=== PATIENT | female | born 1945 | race Caucasian/White ===

== ENCOUNTER 2022-05-07 07:16 | Outpatient (CLI) | payer MEDICARE, SELFPAY ==
--- NOTE | ~2022-05-07 | CT_ITS ---
EXAMINATION: CT abdomen pelvis w con DATE: 05/07/2022 08:04 INDICATION: Diarrhea. Abdominal pain. TECHNIQUE: Computed tomography (CT) of the abdomen and pelvis was performed with 100 cc Omnipaque 350 intravenous contrast. The dose-length product was 220.84 mGy-cm. Automated exposure control and iter ative reconstruction technique were employed. COMPARISON: No prior studies for comparison. FINDINGS: There is thickening of the transverse and proximal descending colon, consistent with coliti s, most likely infectious or inflammatory. Heart size normal. Small hiatal hernia. No significant pleural or pericardial abnormality. Moderate a therosclerosis of the aorta without aneurysm. Colonic diverticulosis without diverticulitis. No free air or free fluid. There is thickening of the bladder wall. There is hepatomegaly. No focal hepatic masses. The spleen, pancreas, adrenal glands and kidneys are unremarkable. Gallbladder is present. No free air or free fluid. No lymphadenopathy. There is osteoar thritis of the hips. Mild lumbar spondylosis with dextroscoliosis. IMPRESSION: 1. Abnormal thickening of the colon, consistent with colitis, most likely infectious or inflammatory. 2: Mild thickening of the bladder wall, suspicious for cystitis. Correlate clinically with urinalysis . 3: Hepatomegaly. Reviewed, dictated and finalized at location A. IMPRESSION: 1. Abnormal thickening of the colon, consistent with colitis, most likely infec tious or inflammatory. 2: Mild thickening of the bladder wall, suspicious for cystitis. Correlate clin ically with urinalysis. 3: Hepatomegaly.
[2022-05-07 07:42] LABS: Estimated Glomerular Filt Rate > 60
== END 2022-05-07 07:17 | disposition home or self-care (01) ==
LOC: CHSIMG 07:20
PROVIDERS: PCP Internal Medicine; Visit Provider Internal Medicine
DX: R19.7 Diarrhea, unspecified (principal); R10.9 Unspecified abdominal pain
CPT/HCPCS: 74177; Q9967

== ENCOUNTER 2022-05-08 07:02 | Outpatient (CLI) | payer MEDICARE, SELFPAY ==
--- NOTE | ~2022-05-08 | US_ITS ---
EXAMINATION: US carotid duplex BI DATE: 05/08/2022 08:57 INDICATION: Carotid bruit. TECHNIQUE: Grayscale, color Doppler, and pulsed Doppler images of the cervical carotid arteries were obtained. The degree of vessel stenosis is placed in one of the following categories: normal, <50%, 5 0-69%, >=70% but less than near-occlusion, near-occlusion, or total occlusion. Note that percent sten osis relative to normal distal artery lumen diameter is indirectly measured from velocity measurement s as described by Srikanth, et al. Radiology 2003; 229:340-346. Notes: Normal: Peak systolic velocity <125 centimeters/sec and no plaque <50%. Peak systolic velocity <125 ( EDV <40; ICA/CCA PSV ratio <2.0; used these factors only a tandem lesions or low cardiac output or co ntralateral disease) 50-69 %: PSV 125-230 (EDV 40-100; ratio 2-4) >= 70% but less than near occlusion: PSV greater than 230 (EDV > 100; ratio> 4.0) Near Occlusion: PSV that is variable; markedly narrowed lumen Occlusion: Absent flow on color/spectral Doppler and no lumen on greene scale. COMPARISON: None. FINDINGS: RIGHT: The right common carotid artery (CCA) peak systolic velocity (PSV) is 65 cm/s. The right internal car otid artery (ICA) PSV is 73 cm/s. The right ICA end-diastolic velocity (EDV) is 27 cm/s. The right IC A/CCA PSV ratio is 1.1. The external carotid artery (ECA) PSV is 67 cm/s. There is antegrade flow in the right vertebral artery. LEFT: The left CCA PSV is 68 cm/s. The left ICA PSV is 68 cm/s. The left ICA EDV is 24 cm/s. The left ICA/C CA PSV ratio is 1.0. The ECA PSV is 69 cm/s. There is antegrade flow in the left vertebral artery. IMPRESSION: 1. Less than 50% stenosis in the right internal carotid artery by sonographic criteria. 2. Less than 50% stenosis in the left internal carotid artery by sonographic criteria. Reviewed, dictated and finalized at location A. IMPRESSION: 1. Less than 50% stenosis in the right internal carotid artery by sonographic padma xie. 2. Less than 50% stenosis in the left internal carotid artery by sonographic elise astudillo.
--- NOTE | ~2022-05-08 | CT_ITS ---
EXAMINATION: CT lung screening DATE: 05/08/2022 07:34 INDICATION: History of nicotine dependence. Lung cancer screening. TECHNIQUE: Computed tomography (CT) of the chest was performed without intravenous contrast. The dose -length product was 63.99 mGy-cm. Automated exposure control and iterative reconstruction technique w ere employed. COMPARISON: None FINDINGS: Mild mediastinal lymphadenopathy, likely reactive. Heart size normal. There is atherosclero sis of the aorta and coronary arteries. Small hiatal hernia. No significant pleural or pericardial ef fusion. There is an irregular shaped nodule in the right upper lobe measuring 7 mm, image 18. Moderat e-severe emphysema. There is a pleural-based mass with irregular margins at the right apex. This may simply represent focal pleural thickening, although neoplasm is not excluded. There is left apical pl eural thickening/scarring. No peripheral airspace consolidation. There are a few small calcified gran ulomas of the lungs.. No endobronchial lesions.. Mild thoracic spondylosis. Anterior fusion changes p resent in the lower cervical spine. There is dextroscoliosis. IMPRESSION: 1. Lung Rads category 4B, very suspicious: Recommend pet/CT scan to assess for abnormal uptake in rig ht upper lobe nodules. Due to location these would be difficult to evaluate with percutaneous biopsy. Reviewed, dictated and finalized at location A. IMPRESSION: 1. Lung Rads category 4B, very suspicious: Recommend pet/CT scan to assess for abnormal uptake in right upper lobe nodules. Due to location these would be dif ficult to evaluate with percutaneous biopsy.
--- NOTE | ~2022-05-08 | US_ITS ---
US arterial ankle brachial ind INDICATION: Peripheral arterial disease TECHNIQUE: Segmental pressures and plethysmographic and Doppler waveforms of the brachial and lower e xtremity arteries were obtained. COMPARISON: None. FINDINGS: Right and left brachial artery pressures of 144 mm Hg and 141 mm Hg, respectively, are concordant (no rmal difference <= 30 mmHg). The right ankle-brachial index (ISAIAS) is 1.09 (normal >= 0.9-1.0). The right great toe-brachial index (TBI) is 0.8 (normal >= 0.60). The left ISAIAS is 1.01. The left TBI is 0.6. IMPRESSION: 1. Normal bilateral ankle-brachial indices. Reviewed, dictated and finalized at location A.
--- NOTE | ~2022-05-08 | US_ITS ---
EXAMINATION: US aorta DATE: 05/08/2022 13:42 CDT INDICATION: TECHNIQUE: Grayscale, color Doppler, and pulsed Doppler images of the aorta and common iliac arteries were obtained. COMPARISON: None. FINDINGS: The proximal aorta is not well visualized due to bowel gas. Proximal abdominal aorta measures approxi mately 1.8 cm greatest sagittal dimension. The mid aorta measures 1.6 cm greatest sagittal dimension. The distal aorta measures 2.2 cm greatest sagittal dimension. The right common internal iliac artery measures 0.9 cm. The left common iliac artery measures 0.8 cm. IMPRESSION: 1. Atherosclerosis of the abdominal aorta without evidence for aneurysm. Reviewed, dictated and finalized at location A.
== END 2022-05-08 07:03 | disposition home or self-care (01) ==
LOC: CHSIMG 07:03
PROVIDERS: PCP Internal Medicine; Visit Provider Internal Medicine
DX: Z12.2 Encounter for screening for malignant neoplasm of respiratory organs (principal); Z87.891 Personal history of nicotine dependence; R09.89 Other specified symptoms and signs involving the circulatory and respiratory systems; I73.9 Peripheral vascular disease, unspecified
CPT/HCPCS: 71271; 76775; 93880; 93922

== ENCOUNTER 2022-05-14 08:10 | Outpatient (CLI) | payer MEDICARE, SELFPAY ==
--- NOTE | ~2022-05-14 | DEXA_ITS ---
Bone Density Report Name: BALDEMAR MAST Age: 77 Sex: Female Ethnicity: White Date of : 1945 Indication: postmenopausal; screening for osteoporosis; height loss; inflammatory bowel disease; prior fracture; hysterectomy; Referring Provider: Aarti Fraire Study: Bone densitometry was performed. Exam Date: May 14, 2022 Accession number: [id number] Bone Density: Region BMD T-score Z-score Classification AP Spine(L1-L4) 1.065 0.2 2.6 Normal Femoral Neck (Left) 0.638 -1.9 0.2 Osteopenia Total Hip (Left) 0.729 -1.7 0.1 Osteopenia Femoral Neck (Right) 0.641 -1.9 0.3 Osteopenia Total Hip (Right) 0.695 -2.0 -0.2 Osteopenia Femoral Neck Mean 0.639 -1.9 0.2 Osteopenia Total Hip Mean 0.712 -1.9 0.0 Osteopenia World Health Organization criteria for BMD impression classify patients as: Normal (T-score at or above -1.0), Osteopenia (T-score between -1.0 and -2.5), or Osteoporosis (T-score at or below -2.5). 10-year Fracture Risk(1): Major Osteoporotic Fracture 17% Hip Fracture 6.2% Reported Risk Factors: [place] (), Neck BMD=0.638, BMI=19.4, previous fracture, smoking (1) FRAX(R) Version 3.08. Fracture probability calculated for an untreated patient. Fracture probability may be lower if the patient has received treatment. Clinical Information Provided by Patient: Has had a low trauma fracture Smokes Has the following medical conditions: Inflammatory bowel diseases, Hysterectomy Patient maximum height was 67 Menopause Age: 31 No regular weight bearing exercise Drinks caffeinated beverages Onset of menses at age 12 Number of children 2 Impression: The patient has low bone mass, based on the Right Total Hip T-score. The patient has risk factors, including: smoking, previous fracture. Discussion: BONE DENSITY IS LOW AT ONE OR MORE SKELETAL SITES. This patient's lowest T-score is low at one or more skeletal sites. It meets the World Health Organization's (WHO) criteria for ?low bone mass? (T-score between -1.0 and -2.5). The patient's 10-year risk of fracture as calculated by FRAX is less than the threshold where pharmacological therapy is recommended by the National Osteoporosis Foundation (NOF). However, all treatment decisions require clinical judgment and consideration of individual patient factors, including patient preferences, comorbidities, previous drug use, risk factors not captured in the FRAX model (e.g., frailty, falls, vitamin D deficiency, increased bone turnover, interval significant decline in bone density) and possible under or overestimation of fracture risk by FRAX. The patient should follow a healthful lifestyle (good nutrition with adequate calcium and vitamin D, and appropriate weight-bearing exercise). Follow-Up: Consi
--- NOTE | ~2022-05-14 | MM_ITS ---
EXAMINATION: MM screening diana BI w zeke HISTORY: Screening mammogram TECHNIQUE: Craniocaudal and mediolateral oblique 3-D tomosynthesis images were obtained and synthetic 2-D images were generated. CAD analysis was submitted and interpreted. COMPARISON: No prior mammogram is available for comparison at this institution. BREAST PARENCHYMAL COMPOSITION: There are scattered areas of fibroglandular density. FINDINGS: There is no evidence of suspicious mass, calcification, or architectural distortion to sugg est malignancy in either breast. There has been no suspicious interval change. IMPRESSION: 1. No mammographic evidence of malignancy. 2. Recommend routine screening mammography in one year. BI-RADS Category 1: Negative Reviewed, dictated and finalized at location A.
== END 2022-05-14 08:11 | disposition home or self-care (01) ==
LOC: CHSIMG 08:11
PROVIDERS: PCP Internal Medicine; Visit Provider Internal Medicine
DX: M81.0 Age-related osteoporosis without current pathological fracture (principal); Z12.31 Encounter for screening mammogram for malignant neoplasm of breast
CPT/HCPCS: 77063; 77067; 77080

== ENCOUNTER 2022-10-24 17:13 | Inpatient (IN) | payer MEDICARE, SELFPAY ==
[2022-10-24] VITALS (14 sets, daily range): BP systolic 112–148; BP diastolic 59–77; PULSE 95–106; RESP 18–20; TEMP 36.5–38.2; O2SAT 92–99
--- NOTE | ~2022-10-24 | XR_ITS ---
Clinical Indication: Cough, shortness of breath PA and lateral views of the chest: Comparison: None Findings: The lungs are clear, without evidence of focal consolidation or pleural effusion. Suspected COPD. Cardiomediastinal silhouette is within normal limits. Cervical spine fixation hardware noted. Impression: Clear lungs. Suspected COPD. Reviewed, dictated and finalized at location . 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 Suspected COPD.
--- NOTE | ~2022-10-24 | CT_ITS ---
Clinical Indication: Shortness of breath CT Scan of the Chest with Contrast: Technique: Contiguous sections were acquired throughout the chest after intravenous administration of 100 cc of Omnipaque 350. Dose reduction technique was used on this scan by utilizing automated expos ure control and iterative reconstruction technique. The dose-length product (DLP) was 149.52 mGy-cm. COMPARISON: 05/08/2022 Findings: Mildly prominent prevascular, hilar, and subcarinal lymph nodes are present, nonspecific. There is no filling defect in the pulmonary arterial tree to suggest pulmonary embolus. There is no evidence of aortic dissection or aneurysm. There is no evidence of pleural or pericardial effusion. There is moderate to severe emphysema, with biapical scarring present. There is new somewhat nodular airspace opacity in the posterior medial right upper lobe (axial images 29-40), nonspecific. Images through the upper abdomen reveal small hiatal hernia. Impression: No evidence of pulmonary embolus, aortic dissection, or aortic aneurysm. New focal irregular somewhat nodular airspace opacity in the posterior medial right upper lobe. This could reflect focal atelectatic change or pneumonia. Neoplasm less likely based on the overall morpho logy. Short-term follow-up CT in one-3 months after interval therapy advised. Moderate to severe emphysema with stable biapical scarring. Reviewed, dictated and finalized at location . 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 New focal irregular somewhat nodular airspace opacity in the posterior medial r ight upper lobe. This could reflect focal atelectatic change or pneumonia. Neop lasm less likely based on the overall morphology. Short-term follow-up CT in on e-3 months after interval therapy advised. Moderate to severe emphysema with stable biapical scarring.
--- NOTE | 2022-10-24 17:26 | ECG_ITS ---
Measurements Intervals [place] Rate: 99 P: 88 FL: 151 QRS: 73 QRSD: 84 T: 81 QT: 333 QTc: 428 Interpretive Statements SINUS RHYTHM POSSIBLE LEFT ATRIAL ENLARGEMENT ANTEROSEPTAL INFARCT, AGE INDETERMINATE BORDERLINE T WAVE ABNORMALITY- INF/HIGH LAT LEADS BASELINE ARTIFACT- II, III, AVR, AVL, AVF ABNORMAL ECG NO PREVIOUS ECG AVAILABLE FOR COMPARISON Electronically Signed On 10-24-2022 18:44:24 [employer] OPERATOR [employer] by Lavon Mederos D.O.
[2022-10-24] MEDS: IPRATROPIUM 0.5 MG/ALBUTEROL SULFATE 2.5 MG AMPUL.NEB 3 ML INHALATION ×3 (17:41→23:50)
--- NOTE | 2022-10-24 17:50 | ED.SOB ---
HPI - SOB/Dyspnea General Chief Complaint: Shortness of Breath/Dyspnea Stated Complaint: fever/cough/shortness of breath Time Seen by Provider: 10/24/22 17:46 Source: patient and family Mode of arrival: ambulatory Limitations: no limitations History of Present Illness HPI Narrative: this is a 77-year-old female that presents with shortness of breath cough mildly productive yellow sputum and congestion with some musculoskeletal discomfort with deep inspiration and coughing, currently no chest pain no nausea vomiting no abdominal pain, the patient is exposed to secondhand smoke. The patient herself has stop smoking approximately 6 years ago, currently has a temperature of 100.6 with no abdominal pain no flank pain no dysuria no hematuria. MD elicited complaint: shortness of breath, cough and pain with inspiration Pertinent past history: COPD Onset (ago): day(s) Timing: constant Severity: moderate Related Data Home Medications Medication Instructions Recorded Confirmed amlodipine 5 mg tablet 5 mg PO DAILY 10/24/22 10/24/22 aspirin 81 mg tablet,delayed 81 mg PO DAILY 10/24/22 10/24/22 release bupropion HCl 150 mg 24 hr tablet, 150 mg PO DAILY 10/24/22 10/24/22 extended release famotidine 20 mg tablet 20 mg PO DAILY 10/24/22 10/24/22 levothyroxine 75 mcg tablet 75 mcg PO DAILY 10/24/22 10/24/22 metoprolol succ 25 1 tablet PO DAILY 10/24/22 10/24/22 mg-hydrochlorothiazide 12.5 mg tablet,ext.rel 24 hr pantoprazole 40 mg tablet,delayed 20 mg PO DAILY 10/24/22 10/24/22 release rosuvastatin 20 mg tablet 20 mg PO DAILY 10/24/22 10/24/22 sertraline 50 mg tablet 25 mg PO DAILY 10/24/22 10/24/22 Allergies Allergy/AdvReac Type Severity Reaction Status Date / Time GERRY Inhibitors Allergy Unknown Verified 10/24/22 17:33 clindamycin Allergy Unknown Verified 10/24/22 17:33 codeine Allergy Unknown Verified 10/24/22 17:33 cyclobenzaprine Allergy Unknown Verified 10/24/22 17:33 lisinopril Allergy Unknown Verified 10/24/22 17:33 Penicillins Allergy Unknown Verified 10/24/22 17:33 Sulfa (Sulfonamide Allergy Unknown Verified 10/24/22 17:33 Antibiotics) Review of Systems Review of Systems: All systems reviewed & are unremarkable except as noted in HPI and below [facility] Past Medical History Medical History COPD (chronic obstructive pulmonary disease) Exam Const: General: ill appearing Nutritional Appearance: thin Orientation/consciousness: patient oriented x3 Limitations: no limitations HENMT: Head: normal to inspection Ears: external ears normal Face/Nose/Sinus: Normal external nose present Mouth: Yes Normal oral and palatal mucosa present Eyes: Conjunctivae: conjunctivae normal Pupils: Equal, round and reactive pupils present EOM: EOMs intact bilaterally Neck: Neck: normal visual inspection Chest: Chest palpation & inspection: normal inspection of the chest Resp: Effort & Inspection: normal respiratory effort Auscultation: diminished lung sounds Cardio: Rate: regular rate Rhythm: regular rhythm GI: GI Palp: Yes Soft to palpation Auscultation: normal bowel sounds : General: Yes bladder normal to palpation Urinary Catheter: Urinary Catheter: patent and draining Skin: General skin exam: normal color Rashes: no rashes Wounds: no wounds Neuro: General: patient oriented x3 Cranial nerves: Yes Nystagmus not present Speech: normal speech Extrem: General: normal to inspection Psych: Mental Status: mental status grossly normal Affect: normal affect Course Course Emergency Course: patient received a nebulizer treatment with DuoNebs IV was started and patient received Solu-Medrol 125 IV, EKG was reviewed which shows sinus tach at a heart rate of 99 with possible left atrial enlargement. Chest x-ray and blood work reviewed with patient. After the nebulizer and steroid the patient is able to cough up a little more phlegm. Patient has
[2022-10-24] MEDS: methylPREDNISolone SOD SUCC 125 MG VIAL IV PUSH (18:03)
[2022-10-24] MEDS: SODIUM CHLORIDE 0.9% IV 1,000 ML 999 ML IV CONT (18:18)
[2022-10-24 18:21] LABS: Influenza A QL RT-PCR Negative (Negative); Influenza B QL RT-PCR Negative (Negative); SARS-CoV-2 RNA PCR Negative (Negative); Strep Group A RT-PCR NOT DETECTED (Negative)
[2022-10-24 18:23] LABS: Basophils Absolute Auto 0.05 K/mm3 (0.00-0.10); Basophils Percent Auto 0.5 % (0.0-1.0); Eosinophils Absolute Auto 0.03 K/mm3 (0.02-0.50); Eosinophils Percent Auto 0.3 % (1.0-6.0); Hematocrit 43.4 % (35.0-42.0); Hemoglobin 14.3 g/dL (11.7-13.8); Immature Granulocyte Absolute 0.03 K/mm3 (0.00-0.00); Immature Granulocyte Percent A 0.3 % (0.0-0.0); Lymphocytes Absolute Auto 1.66 K/mm3 (1.10-4.50); Lymphocytes Percent Auto 15.7 % (18.0-42.0); Mean Corpuscular HGB Conc 32.9 g/dL (32.0-36.0); Mean Corpuscular Hemoglobin 32.5 pg (27.0-31.0); Mean Corpuscular Volume 98.6 fL (78.0-102.0); Mean Platelet Volume 9.3 fl (9.2-11.8); Monocytes Absolute Auto 1.33 K/mm3 (0.10-0.90); Monocytes Percent Auto 12.6 % (2.0-11.0); Neutrophils Absolute Auto 7.5 K/mm3 (1.7-7.2); Neutrophils Percent Auto 70.6 % (50.0-70.0); Platelet Count Result 201 K/mm3 (150-420); White Blood Count 10.6 K/mm3 (4.8-10.8)
[2022-10-24 18:43] LABS: Partial Thromboplastin Time 32.4 SEC (23.90-30.70); Prothrombin Time 10.9 Seconds (9.50-12.10)
[2022-10-24 18:46] LABS: Alanine Aminotransferase 14 U/L (14-59); Albumin Level 3.4 g/dL (3.4-5.0); Alkaline Phosphatase 114 U/L (46-116); Anion Gap 12 mmol/L (8-16); Aspartate Amino Transferase 15 U/L (15-37); Bilirubin,Total 1.1 mg/dL (0.00-1.00); Blood Urea Nitrogen 8 mg/dL (7-18); Calcium 6.5 mg/dL (8.5-10.1); Carbon Dioxide 25 mmol/L (21-32); Chloride 96 mmol/L (98-108); Estimated CRCL calculation 43 ml/min; Estimated Glomerular Filt Rate > 60; Glucose 100 mg/dL (70-99); Magnesium 1.9 mg/dL (1.8-2.4); NT Pro B Type Natriuretic Pept 112 pg/mL (0-450); Osmolality Calculated 274 mOsm/kg (285-295); Potassium 3.6 mmol/L (3.5-5.1); Sodium 133 mmol/L (136-145); Troponin I 8.7 ng/L (0.00-60.4)
[2022-10-24 18:47] LABS: D Dimer 0.96 mg/L (0.19-0.50)
--- NOTE | 2022-10-24 19:10 | PC.NURSE ---
Pt resting, noted SPO2 90%, side lying, awaiting test results, Noted temp still 100.2. Pt reports feeling weak, IVF infused as per order.
[2022-10-24] MEDS: levoFLOXacin 500 MG/D5W 100 ML 500 MG/100 ML BAG 100 MG IVPB (20:00)
--- NOTE | 2022-10-24 20:12 | PC.NURSE ---
Pt sitting up in bed c daughter at bedside, she states she is feeling hungry at this time since not eating for past 3 days. Diet ordered per ERP and pt given sandwich, fruit and drink. Pt remains A&O x3, VSS, harsh loose cough present, IV Levaquin infusing as per order. Dr De La Vega spoke c Geri, [employer] and orders placed for admission.
--- NOTE | 2022-10-24 21:04 | ADMGEN ---
This patient, Mariana Hubbard, was admitted to 2nd Floor Room 208-2. Patient/family oriented to hospital policies and general routines including ID bracelet, bed and alarms, visiting hours, pain management, procedures, bathroom and other care routines, personal items, smoking policy, room service/diet, and visiting hours. Information on how to activate the Rapid Response Team has been discussed. Patient/Family are encouraged to report perceived risks to care and to ask questions if they do not understand what they are told or what they should do.
[2022-10-24] MEDS: guaiFENesin 12 HR 600 MG TABCR 1200 MG PO (21:17)
[2022-10-24] MEDS: BENZONATATE 100 MG CAPSULE 200 MG PO (21:17)
[2022-10-24] MEDS: methylPREDNISolone SOD SUCC 125 MG VIAL 80 MG IV PUSH (21:18)
[2022-10-25] VITALS (9 sets, daily range): BP systolic 122–129; BP diastolic 61–86; PULSE 62–92; RESP 18–20; TEMP 35.8–36.6; O2SAT 94–98
[2022-10-25] MEDS: methylPREDNISolone SOD SUCC 125 MG VIAL 80 MG IV PUSH (05:28)
[2022-10-25] MEDS: LEVOTHYROXINE SODIUM 75 MCG TABLET PO (05:31)
[2022-10-25 05:40] LABS: Hematocrit 45.4 % (35.0-42.0); Hemoglobin 15.1 g/dL (11.7-13.8); Mean Corpuscular HGB Conc 33.3 g/dL (32.0-36.0); Mean Corpuscular Hemoglobin 33.5 pg (27.0-31.0); Mean Corpuscular Volume 100.7 fL (78.0-102.0); Mean Platelet Volume 9.3 fl (9.2-11.8); Platelet Count Result 195 K/mm3 (150-420); Red Blood Count 4.51 M/mm3 (4.20-5.40); Red Cell Distribution Width 11.9 % (11.6-14.4); White Blood Count 5.9 K/mm3 (4.8-10.8)
[2022-10-25 05:55] LABS: Alanine Aminotransferase 14 U/L (14-59); Albumin Level 3.1 g/dL (3.4-5.0); Alkaline Phosphatase 112 U/L (46-116); Anion Gap 12 mmol/L (8-16); Aspartate Amino Transferase 16 U/L (15-37); Bilirubin,Total 0.5 mg/dL (0.00-1.00); Blood Urea Nitrogen 8 mg/dL (7-18); Carbon Dioxide 25 mmol/L (21-32); Chloride 101 mmol/L (98-108); Estimated CRCL calculation 37 ml/min; Estimated Glomerular Filt Rate 55; Glucose 225 mg/dL (70-99); Osmolality Calculated 291 mOsm/kg (285-295); Potassium 3.8 mmol/L (3.5-5.1); Sodium 138 mmol/L (136-145); Total Protein 8.2 g/dL (6.4-8.2)
[2022-10-25] MEDS: IPRATROPIUM 0.5 MG/ALBUTEROL SULFATE 2.5 MG AMPUL.NEB 3 ML INHALATION ×4 (06:56→23:50)
[2022-10-25] MEDS: BENZONATATE 100 MG CAPSULE 200 MG PO ×3 (08:45→16:50)
[2022-10-25] MEDS: ENOXAPARIN 40 MG/0.4 ML SYRINGE SUB-Q (08:45)
[2022-10-25] MEDS: guaiFENesin 12 HR 600 MG TABCR 1200 MG PO ×2 (08:45→20:13)
[2022-10-25] MEDS: PANTOPRAZOLE SOD SESQUIHYDRATE 20 MG TAB PO (08:45)
[2022-10-25] MEDS: hydroCHLOROthiazide 12.5 MG CAPSULE PO (08:45)
[2022-10-25] MEDS: amLODIPine BESYLATE 5 MG TABLET PO (08:46)
[2022-10-25] MEDS: ASPIRIN 81 MG ENTERIC TABLET PO (08:46)
[2022-10-25] MEDS: buPROPion HCL XL (24 HR) 150 MG TABCR PO (08:46)
[2022-10-25] MEDS: SERTRALINE HCL 25 MG TABLET PO (08:46)
[2022-10-25] MEDS: FAMOTIDINE 20 MG TABLET PO (08:46)
[2022-10-25] MEDS: METOPROLOL SUCCINATE EXT REL 25 MG TABCR PO (08:46)
[2022-10-25] MEDS: ROSUVASTATIN 10 MG TABLET 20 MG PO (08:46)
--- NOTE | 2022-10-25 10:02 | PM.IMHP ---
H&P: HPI History of Present Illness Date/Time: 10/25/22 10:02 Chief Complaint: Shortness of breath Narrative: this is a 77-year-old female presented to our emergency department with complaints of shortness of breath in a on controllable cough. Patient has a past medical history of COPD hypertension HLD hypothyroidism GERD and depression. According to patient she started experiencing a cough and shortness of breath on that were sent yesterday. Patient does not smoke cigarette but she has 2 daughters who has a tobacco dependence. Patient does see a special duty nurse and notes that she has not been given any medication for COPD. Patient did have a fever of 100 patient's WBC is 10.6, hemoglobin 14.3, hematocrit 43.4, platelets 201, D-dimer 0.96, sodium 133, potassium 3.6, BUN 8, creatinine 0.83, glucose 100, calcium 6.5, magnesium 1.9, liver function tests within normal limits BNP 12 negative for influenza A/B COVID and strep. Imaging did indicate COPD and possible pneumonia. Patient will be admitted for a COPD exacerbation and pneumonia. The patient denies CP, palpitation, extremity numbness, lightheadedness, dizziness, constipation, diarrhea, chills, or fever. Review of Systems Review of Systems: A 14 organ system Review of Systems was performed and pertinent positives included in the HPI, otherwise remaining ROS is negative. [facility] Past Medical History Medical History COPD (chronic obstructive pulmonary disease) Social History Social History Smoking packs per day: 1 Smoking cigarettes per day: 20.0 Years smoked: 25 Smoking pack-years: 25.00 Smoking status: Former smoker Tobacco type: cigarettes Alcohol intake: current Drinks per week: 1 Substance use: current Substance use type: prescription drug Lack of Transportation: No Lack of Food: Never True Current Housing: I Have Housing Concerned About Future Housing: No Difficulty Paying Gas/Electric Bills: No Difficulty Paying for Meds: No Currently Unemployed: No Education: Bachelor's Degree Difficulty w/ Childcare or Family Care: No Spiritual care concerns: No Meds Home Medications and Allergies Home Medications Medication Instructions Recorded Confirmed Type amlodipine 5 mg tablet 5 mg PO DAILY 10/24/22 10/24/22 History aspirin 81 mg tablet,delayed 81 mg PO DAILY 10/24/22 10/24/22 History release bupropion HCl 150 mg 24 hr tablet, 150 mg PO DAILY 10/24/22 10/24/22 History extended release famotidine 20 mg tablet 20 mg PO DAILY 10/24/22 10/24/22 History levothyroxine 75 mcg tablet 75 mcg PO DAILY 10/24/22 10/24/22 History metoprolol succ 25 1 tablet PO DAILY 10/24/22 10/24/22 History mg-hydrochlorothiazide 12.5 mg tablet,ext.rel 24 hr pantoprazole 40 mg tablet,delayed 20 mg PO DAILY 10/24/22 10/24/22 History release rosuvastatin 20 mg tablet 20 mg PO DAILY 10/24/22 10/24/22 History sertraline 50 mg tablet 25 mg PO DAILY 10/24/22 10/24/22 History Allergies Allergy/AdvReac Type Severity Reaction Status Date / Time GERRY Inhibitors Allergy Unknown Verified 10/24/22 17:33 clindamycin Allergy Unknown Verified 10/24/22 17:33 codeine Allergy Unknown Verified 10/24/22 17:33 cyclobenzaprine Allergy Unknown Verified 10/24/22 17:33 hydrocodone Allergy Vomiting Unverified 10/25/22 11:27 lisinopril Allergy Unknown Verified 10/24/22 17:33 Penicillins Allergy Unknown Verified 10/24/22 17:33 Sulfa (Sulfonamide Allergy Unknown Verified 10/24/22 17:33 Antibiotics) Vital Signs Vital Signs - 24 hr 10/24/22 17:13 10/24/22 17:37 10/24/22 17:42 Temperature 100.7 F H Pulse Rate 106 H 99 Respiratory Rate 20 18 Blood Pressure 148/69 H Pulse Oximetry 93 96 99 Oxygen Delivery Room Air Room Air 10/24/22 17:44 10/24/22 18:39 10/24/22 18:56 Temperature 100.2 F H Pulse Rate 99 97
[2022-10-25] MEDS: methylPREDNISolone SOD SUCC 125 MG VIAL 40 MG IV PUSH (16:51)
[2022-10-25] MEDS: SALMET XINAFT/FLUTIC PROPIN 100 MCG/50 MCG INH CAP 1 PUFF INHALATION (16:52)
[2022-10-25] MEDS: traZODone HCL 50 MG TABLET PO (21:28)
[2022-10-26] MEDS: IPRATROPIUM 0.5 MG/ALBUTEROL SULFATE 2.5 MG AMPUL.NEB 3 ML INHALATION (05:18)
[2022-10-26 05:19] VITALS: PULSE 75; RESP 20; O2SAT 94
[2022-10-26 05:24] LABS: Hematocrit 38.1 % (35.0-42.0); Mean Corpuscular HGB Conc 34.1 g/dL (32.0-36.0); Mean Corpuscular Hemoglobin 33.4 pg (27.0-31.0); Mean Corpuscular Volume 97.9 fL (78.0-102.0); Mean Platelet Volume 9.2 fl (9.2-11.8); Platelet Count Result 208 K/mm3 (150-420); Red Blood Count 3.89 M/mm3 (4.20-5.40); Red Cell Distribution Width 11.9 % (11.6-14.4); White Blood Count 13.2 K/mm3 (4.8-10.8)
[2022-10-26 05:29] VITALS: PULSE 72; RESP 19; O2SAT 94
[2022-10-26 05:33] LABS: Anion Gap 6 mmol/L (8-16); Blood Urea Nitrogen 11 mg/dL (7-18); Calcium 8.6 mg/dL (8.5-10.1); Carbon Dioxide 28 mmol/L (21-32); Chloride 102 mmol/L (98-108); Estimated CRCL calculation 46 ml/min; Estimated Glomerular Filt Rate > 60; Glucose 162 mg/dL (70-99); Osmolality Calculated 285 mOsm/kg (285-295); Potassium 4.2 mmol/L (3.5-5.1); Sodium 136 mmol/L (136-145)
[2022-10-26] MEDS: SALMET XINAFT/FLUTIC PROPIN 100 MCG/50 MCG INH CAP 1 PUFF INHALATION (05:35)
[2022-10-26] MEDS: LEVOTHYROXINE SODIUM 75 MCG TABLET PO (05:35)
[2022-10-26 05:39] LABS: Hemoglobin A1C 5.5 % (<5.7)
[2022-10-26 07:41] VITALS: BP 111/69; PULSE 83; RESP 18; TEMP 36.6; O2SAT 92
[2022-10-26] MEDS: methylPREDNISolone SOD SUCC 125 MG VIAL 40 MG IV PUSH (08:17)
[2022-10-26] MEDS: ENOXAPARIN 40 MG/0.4 ML SYRINGE SUB-Q (08:20)
[2022-10-26] MEDS: amLODIPine BESYLATE 5 MG TABLET PO (08:21)
[2022-10-26 08:22] VITALS: PULSE 83
[2022-10-26] MEDS: METOPROLOL SUCCINATE EXT REL 25 MG TABCR PO (08:22)
[2022-10-26] MEDS: BENZONATATE 100 MG CAPSULE 200 MG PO (08:22)
[2022-10-26] MEDS: buPROPion HCL XL (24 HR) 150 MG TABCR PO (08:23)
[2022-10-26] MEDS: FAMOTIDINE 20 MG TABLET PO (08:23)
[2022-10-26] MEDS: hydroCHLOROthiazide 12.5 MG CAPSULE PO (08:23)
[2022-10-26] MEDS: ROSUVASTATIN 10 MG TABLET 20 MG PO (08:23)
[2022-10-26] MEDS: guaiFENesin 12 HR 600 MG TABCR 1200 MG PO (08:24)
[2022-10-26] MEDS: PANTOPRAZOLE SOD SESQUIHYDRATE 20 MG TAB PO (08:24)
[2022-10-26] MEDS: SERTRALINE HCL 25 MG TABLET PO (08:25)
[2022-10-26] MEDS: ASPIRIN 81 MG ENTERIC TABLET PO (08:25)
--- NOTE | 2022-10-26 08:32 | PM.DS ---
DS: Admitting Diagnosis Discharge Date 10/26/2022 Admitting Diagnosis copd exacerabtaion and pna DS: Discharge Diagnosis Discharge Diagnosis (1) Pneumonia: Qualifiers: Laterality: right Lung location: upper lobe of lung Pneumonia type: due to unspecified organism Qualified Code(s): J18.9 - Pneumonia, unspecified organism Code(s): J18.9 - Pneumonia, unspecified organism Status: Acute Assessment and Plan: imaging indicated possible pneumonia WBC is within normal limits patient is febrile blood culture pending preliminary no growth continue Levaquin 500 mg daily for 7 days patient afebrile (2) COPD (chronic obstructive pulmonary disease): Qualifiers: COPD type: unspecified COPD Qualified Code(s): J44.9 - Chronic obstructive pulmonary disease, unspecified Code(s): J44.9 - Chronic obstructive pulmonary disease, unspecified Status: Acute Assessment and Plan: imaging indicated possible pneumonia WBC elevated possibly due to steroid use blood culture pending limited renal growth continue Levaquin 500 mg x 7 days patient will discharge home with Medrol pack, Advair albuterol in nebulizer with treatment (3) HTN (hypertension): Code(s): I10 - Essential (primary) hypertension Status: Acute Assessment and Plan: stable continue home medication (4) Hypothyroidism: Code(s): E03.9 - Hypothyroidism, unspecified Status: Acute Assessment and Plan: continue home medication (5) HLD (hyperlipidemia): Code(s): E78.5 - Hyperlipidemia, unspecified Status: Acute Assessment and Plan: continue home medication (6) Elevated d-dimer: Code(s): R79.89 - Other specified abnormal findings of blood chemistry Status: Acute Assessment and Plan: D-dimer elevated CTA does not indicate PE DS: Summary Hospital Course Reason for hospitalization: shortness of breath Hospital Course: this is a 77-year-old female presented to our emergency department with complaints of shortness of breath in a on controllable cough.? Patient has a past medical history of COPD hypertension HLD hypothyroidism GERD and depression.? According to patient she started experiencing a cough and shortness of breath on that were sent yesterday.? Patient does not smoke cigarette but she has 2 daughters who has a tobacco dependence.? Patient does see a boiler reliner and notes that she has not been given any? medication for COPD. patient received Levaquin along with nebulizer treatments and steroids as inpatient she will discharge home with Medrol Collins, albuterol, Advair, nebulizer with treatment and follow-up with her boiler reliner. The patient denies CP, palpitation, extremity numbness, lightheadedness, dizziness, constipation, diarrhea, chills, or fever. Patient notes that her condition has improved she is in agreement that she is ready for discharge. He will follow-up with her boiler reliner Time Spent with Patient Time attestation: Total time spent providing and/or coordinating discharge services: Exam Narrative: GENERAL: This is a well-nourished, well-developed patient, in no apparent distress. HEAD: normocephalic, atraumatic. EYES: PERRL. Sclera clear/white. Vision is grossly intact. EARS: External ears normal, auditory canals clear and without drainage, TMs normal without perforation. Hearing grossly intact. NOSE: External nose normal with no obvious nasal discharge, nares without redness, no rhinorrhea. THROAT: Mucous membranes moist, posterior pharynx clear. NECK: Neck supple, non-tender without lymphadenopathy, masses or thyromegaly. CARDIOVASCULAR: Regular rate and rhythm without murmurs, gallops, or rubs. RESPIRATORY: diminished GASTROINTESTINAL: Abdomen soft, non-tender, nondistended. Bowel sounds are active. No hepato-splenomegaly, or palpable masses. No guarding. SKIN: warm, intact with
--- NOTE | 2022-10-26 09:37 | PC.NURSE ---
Discontinued IV access in anticipation of discharge.
--- NOTE | 2022-10-26 10:04 | PC.NURSE ---
Discharge instructions given to patient and explained. Patient voices understanding. Written prescription give to patient for nebulizer machine per patient request, to ensure patient can purchase machine at pharmacy of her choice.
--- NOTE | 2022-10-26 10:50 | PC.NURSE ---
Patient left unit accompanied by inspector automatic typewriter and patient's sister in w/c. Patient left hospital grounds in privately owned vehicle. Personal belongings sent home with patient. Patient voiced full understanding of discharge instructions and was welcomed to call the floor with any questions.
--- NOTE | 2022-10-27 13:17 | PC.NURSE ---
Pt states she received and understood her discharge instructions. Pt also states I've never had such good care in a hospital. Everyone was wonderful.
== END 2022-10-26 10:50 | disposition home or self-care (01) | DRG 194 ==
LOC: CHSED 20:12 → CHS2ND 20:20
PROVIDERS: Nurse Practitioner; Admitting Provider Internal Medicine; Emergency Provider Emergency Medicine; PCP Internal Medicine; Visit Provider Internal Medicine
DX: J18.9 Pneumonia, unspecified organism (principal); J44.0 Chronic obstructive pulmonary disease with (acute) lower respiratory infection; Z79.82 Long term (current) use of aspirin; Z20.822 Contact with and (suspected) exposure to COVID-19; I10 Essential (primary) hypertension; E03.9 Hypothyroidism, unspecified; E78.5 Hyperlipidemia, unspecified; R79.1 Abnormal coagulation profile; Z87.891 Personal history of nicotine dependence; Z79.899 Other long term (current) drug therapy
CPT/HCPCS: 36415; 71046; 71275; 80048; 80053; 83036; 83735; 83880; 84484; 85025; 85027; 85380; 85610; 85730; 87040; 87636; 87651; 93005; 94640; 96361; 96374; 96375; 97161; 99285; A9270; J0131; J1650; J1956; J2930; J7030; Q9967

== ENCOUNTER 2023-01-28 08:28 | Outpatient (CLI) | payer MEDICARE, SELFPAY ==
--- NOTE | ~2023-01-28 | CT_ITS ---
EXAMINATION: CT diagnostic chest wo con DATE: 01/28/2023 09:03 INDICATION: Follow-up pulmonary nodule. COPD. TECHNIQUE: Computed tomography (CT) of the chest was performed without intravenous contrast. The dose -length product was 58.13 mGy-cm. Automated exposure control and iterative reconstruction technique w ere employed. COMPARISON: CT dated 10/24/2022 FINDINGS: There is mediastinal lymphadenopathy including the prevascular space, precarinal location, unchanged, likely reactive. Heart size normal. No significant pleural or pericardial effusion. Small hiatal hernia. There is atherosclerosis of the aorta and coronary arteries. Severe emphysema. There i s focal consolidation of the right upper lobe anterior medially with persistent apical pleural thicke tammy/scarring bilaterally. There is a 7 mm right apical nodule image 14, without significant change f rom prior study. No endobronchial lesion. No pneumothorax. There is a 2 mm left apical nodule. There are a few calcified granulomas of the lungs. Mild thoracic spondylosis. No acute osseous abnormality. IMPRESSION: 1. Right apical nodules, largest measuring 7 mm on the right. This is unchanged compared with 10/25/19 23. New focal area of consolidation in the right upper lobe anterior medially, most likely postinfect ious/inflammatory. Recommend follow-up low dose CT chest in 6 months. 2: Mediastinal lymphadenopathy, likely reactive. 3: Emphysema. Reviewed, dictated and finalized at location [] IMPRESSION: 1. Right apical nodules, largest measuring 7 mm on the right. This is unchanged compared with 10/24/2022. New focal area of consolidation in the right upper lo be anterior medially, most likely postinfectious/inflammatory. Recommend follow -up low dose CT chest in 6 months. 2: Mediastinal lymphadenopathy, likely reactive. 3: Emphysema.
== END 2023-01-28 08:29 | disposition home or self-care (01) ==
LOC: CHSIMG 08:29
PROVIDERS: PCP Internal Medicine; Visit Provider Internal Medicine
DX: R91.8 Other nonspecific abnormal finding of lung field (principal); R59.0 Localized enlarged lymph nodes; J43.9 Emphysema, unspecified
CPT/HCPCS: 71250

== ENCOUNTER 2023-06-23 05:52 | Day surgery (SDC) | payer MEDICARE, SELFPAY ==
[2023-06-23 06:15] VITALS: BP 142/77; PULSE 72; RESP 20; TEMP 37.1; O2SAT 95
--- NOTE | 2023-06-23 06:38 | WPDANESEPPF ---
Anes - Initial Pre Proc Eval Procedure: Operation Date: 06/23/23 07:30 Proposed Procedures p Diagnostic Colonoscopy - Jhon Johnson DO Date/Time: 06/23/23 06:38 Surgeon: Jhon Johnson DO Pre Op Diagnosis: History of Polyps Patient Data Age: 78 Gender: F Height: 1.68 m Weight: 60.6 kg Allergies Allergy/AdvReac Type Severity Reaction Status Date / Time GERRY Inhibitors Allergy Unknown Verified 06/23/23 06:19 clindamycin Allergy Unknown Verified 06/23/23 06:19 codeine Allergy Unknown Verified 06/23/23 06:19 cyclobenzaprine Allergy Unknown Verified 06/23/23 06:19 hydrocodone Allergy Vomiting Verified 06/23/23 06:19 lisinopril Allergy Unknown Verified 06/23/23 06:19 Penicillins Allergy Unknown Verified 06/23/23 06:19 Sulfa (Sulfonamide Allergy Unknown Verified 06/23/23 06:19 Antibiotics) Home Medications Medication Instructions Recorded Confirmed Type amlodipine 5 mg tablet 5 mg PO DAILY 10/24/22 06/14/23 History aspirin 81 mg tablet,delayed 81 mg PO DAILY 10/24/22 06/23/23 History release bupropion HCl 150 mg 24 hr tablet, 150 mg PO DAILY 10/24/22 06/23/23 History extended release famotidine 20 mg tablet 20 mg PO DAILY 10/24/22 06/23/23 History levothyroxine 75 mcg tablet 88 mcg PO DAILY 10/24/22 06/23/23 History metoprolol succ 25 1 tablet PO DAILY 10/24/22 06/23/23 History mg-hydrochlorothiazide 12.5 mg tablet,ext.rel 24 hr pantoprazole 40 mg tablet,delayed 40 mg PO DAILY 10/24/22 06/23/23 History release rosuvastatin 20 mg tablet 10 mg PO DAILY 10/24/22 06/23/23 History sertraline 50 mg tablet 25 mg PO DAILY 10/24/22 06/23/23 History albuterol sulfate 90 mcg/actuation 2 puff inhalation QIDRT PRN 10/26/22 06/14/23 Rx aerosol inhaler (Proventil HFA) Shortness Of Breath #1 g benzonatate 100 mg capsule 200 mg PO TID 10 days #60 caps 10/26/22 06/23/23 Rx fluticasone 100 mcg-salmeterol 50 1 ea inhalation Q12HRT #1 ea 10/26/22 06/23/23 Rx mcg/dose blistr powdr for inhalation (Advair Diskus) ipratropium 0.5 mg-albuterol 3 mg 3 ml inhalation Q6HRT #180 mL 10/26/22 06/14/23 Rx (2.5 mg base)/3 mL nebulization soln nebulizers #1 ea 10/26/22 06/14/23 Rx B12 1 tablet PO DAILY 06/14/23 06/14/23 History guaifenesin 600 mg tablet, 1,200 mg PO PRN 06/14/23 06/14/23 History extended release 12 hr (Mucus Relief ER) Patient hx anesthesia problems: none Family hx anesthesia problems: none Results Review: All pre-operative results and documents have been reviewed as part of the pre-operative evaluation. [facility] Past Medical History Medical History (Updated 06/23/23 @ 06:39 by Patric Frost DO) CAD (coronary artery disease) COPD (chronic obstructive pulmonary disease) History of uterine cancer HLD (hyperlipidemia) HTN (hypertension) Hypothyroidism Surgical History Surgical History (Updated 06/23/23 @ 06:39 by Patric Frost DO) History of coronary artery stent placement x1 - 2006 Social History Social History Smoking packs per day: 1 Smoking cigarettes per day: 20.0 Years smoked: 25 Smoking pack-years: 25.00 Smoking status: Former smoker Tobacco type: cigarettes Alcohol intake: current Drinks per week: 1 Substance use: current Substance use type: prescription drug Lack of Transportation: No Lack of Food: Never True Current Housing: I Have Housing Concerned About Future Housing: No Difficulty Paying Gas/Electric Bills: No Difficulty Paying for Meds: No Currently Unemployed: No Education: Bachelor's Degree Difficulty w/ Childcare or Family Care: No Living arrangements: alone Spiritual care concerns: No Anes - Eval Final PreProcedure Day of Procedure 06/23/23 06:38 Patient weight: normal Heart: regular rate and rhythm Lungs: clear to auscultation and normal air movement Airway: Mallampati scale class II Neurologica
[2023-06-23] MEDS: LACTATED RINGERS 1,000 ML 150 ML IV CONT (06:53)
--- NOTE | 2023-06-23 07:21 | PM.IMHP ---
H&P: HPI History of Present Illness Date/Time: 06/23/23 07:21 Chief Complaint: hx colon polyps Narrative: 78 yo woman presents for colonoscopy. Her last colonoscopy was 5-6 years ago. Polyps were removed. She denies hematochezia or melena. Denies fam hx colon cancer. Review of Systems Review of Systems: All systems reviewed & are unremarkable except as noted in HPI and below Constitutional: Constitutional: Denies chills, Denies fever(s), Denies headache(s) and Denies weight loss Eyes: Eyes: Denies change in vision ENT: Denies dizziness, Denies headache(s), Denies neck mass and Denies throat swelling Cardiovascular: Cardiovascular: Denies chest pain, Denies lightheadedness and Denies dyspnea Respiratory: Respiratory: Denies cough, Denies dyspnea and Denies wheezing Gastrointestinal: Gastrointestinal: Denies abdominal pain, Denies change in bowel habits, Denies nausea and Denies vomiting Genitourinary: Genitourinary: Denies hematuria and Denies dysuria Musculoskeletal: Musculoskeletal: Reports as per HPI Integumentary/Breasts: Skin/Breast: Reports as per HPI Neurologic: Denies dizziness and Denies headache(s) Allergic/Immunologic: Allergic/Immunologic: Denies throat swelling and Denies wheezing PMF Past Medical History Medical History (Updated 06/23/23 @ 07:23 by Jhon Johnson DO) CAD (coronary artery disease) COPD (chronic obstructive pulmonary disease) History of uterine cancer HLD (hyperlipidemia) HTN (hypertension) Hypothyroidism Surgical History Surgical History (Updated 06/23/23 @ 06:39 by Patric Frost DO) History of coronary artery stent placement x1 - 2006 Social History Social History Smoking packs per day: 1 Smoking cigarettes per day: 20.0 Years smoked: 25 Smoking pack-years: 25.00 Smoking status: Former smoker Tobacco type: cigarettes Alcohol intake: current Drinks per week: 1 Substance use: current Substance use type: prescription drug Lack of Transportation: No Lack of Food: Never True Current Housing: I Have Housing Concerned About Future Housing: No Difficulty Paying Gas/Electric Bills: No Difficulty Paying for Meds: No Currently Unemployed: No Education: Bachelor's Degree Difficulty w/ Childcare or Family Care: No Living arrangements: alone Spiritual care concerns: No Meds Home Medications and Allergies Home Medications Medication Instructions Recorded Confirmed Type amlodipine 5 mg tablet 5 mg PO DAILY 10/24/22 06/14/23 History aspirin 81 mg tablet,delayed 81 mg PO DAILY 10/24/22 06/23/23 History release bupropion HCl 150 mg 24 hr tablet, 150 mg PO DAILY 10/24/22 06/23/23 History extended release famotidine 20 mg tablet 20 mg PO DAILY 10/24/22 06/23/23 History levothyroxine 75 mcg tablet 88 mcg PO DAILY 10/24/22 06/23/23 History metoprolol succ 25 1 tablet PO DAILY 10/24/22 06/23/23 History mg-hydrochlorothiazide 12.5 mg tablet,ext.rel 24 hr pantoprazole 40 mg tablet,delayed 40 mg PO DAILY 10/24/22 06/23/23 History release rosuvastatin 20 mg tablet 10 mg PO DAILY 10/24/22 06/23/23 History sertraline 50 mg tablet 25 mg PO DAILY 10/24/22 06/23/23 History albuterol sulfate 90 mcg/actuation 2 puff inhalation QIDRT PRN 10/26/22 06/14/23 Rx aerosol inhaler (Proventil HFA) Shortness Of Breath #1 g benzonatate 100 mg capsule 200 mg PO TID 10 days #60 caps 10/26/22 06/23/23 Rx fluticasone 100 mcg-salmeterol 50 1 ea inhalation Q12HRT #1 ea 10/26/22 06/23/23 Rx mcg/dose blistr powdr for inhalation (Advair Diskus) ipratropium 0.5 mg-albuterol 3 mg 3 ml inhalation Q6HRT #180 mL 10/26/22 06/14/23 Rx (2.5 mg base)/3 mL nebulization soln nebulizers #1 ea 10/26/22 06/14/23 Rx B12 1 tablet PO DAILY 06/14/23 06/14/23 History guaifenesin 600 mg tablet, 1,200 mg PO PRN 06/14/23 06/14/23 History extended release 12 hr (Mucus Reli
[2023-06-23 07:52] VITALS: BP 85/49; PULSE 69; RESP 16; O2SAT 98
[2023-06-23 07:54] VITALS: BP 98/53
[2023-06-23 08:02] VITALS: BP 105/59; PULSE 70; RESP 17; O2SAT 99
[2023-06-23 08:12] VITALS: BP 124/71; PULSE 70; RESP 16; O2SAT 100
--- NOTE | 2023-06-23 10:15 | WPDANESPN ---
Anes - Prog Note Post-Op Date/Time: 06/23/23 10:15 Cardiovascular status: normal Respiratory status: normal Airway patency: baseline Mental status: baseline Post-Op hydration status: normal Vital Signs: Last Vital Signs Temp 37.1 C 06/23/23 06:15 Pulse 70 06/23/23 08:12 Resp 16 06/23/23 08:12 BP 124/71 06/23/23 08:12 Pulse Ox 100 06/23/23 08:12 O2 Del Method Room Air 06/23/23 08:12 Pain Score (VAS): 0 I/O: Intake & Output 06/22/23 06/23/23 06/23/23 23:59 07:59 15:59 Intake Total 400 350 Balance 400 350 Post-procedural complaints: none Patient Feedback: Patient satisfied with anesthetic care. Other Findings: Patient vital signs back to baseline. Patient denies nausea and vomiting. Patient's pain under control. Patient OK for discharge.
== END 2023-06-23 08:23 | disposition home or self-care (01) ==
PROVIDERS: PCP Internal Medicine; Visit Provider Surgery
PROC: 0DJD8ZZ Inspection of Lower Intestinal Tract, Via Natural or Artificial Opening Endoscopic (ICD-10-PCS; CPT 45378; principal; 2023-06-23 07:30)
DX: Z86.010 Personal history of colon polyps (principal); K57.30 Diverticulosis of large intestine without perforation or abscess without bleeding
CPT/HCPCS: 45378

== ENCOUNTER 2023-08-18 13:14 | Outpatient (CLI) | payer MEDICARE, SELFPAY ==
--- NOTE | ~2023-08-18 | MM_ITS ---
EXAMINATION: MM screening [facility] BI w zeke HISTORY: Screening mammogram TECHNIQUE: Craniocaudal and mediolateral oblique 3-D tomosynthesis images were obtained and synthetic 2-D images were generated. CAD analysis was submitted and interpreted. COMPARISON: 05/14/2022 BREAST PARENCHYMAL COMPOSITION: There are scattered areas of fibroglandular density. FINDINGS: RIGHT BREAST: No suspicious mass, calcification, or architectural distortion are identified to sugges t malignancy. There has been no suspicious interval change. LEFT BREAST: An asymmetry is present in the posterior third of the outer breast 8.5 cm from the nippl e on the craniocaudal view. IMPRESSION: 1. Left breast asymmetry on the craniocaudal view. 2. Additional mammographic views and possible breast ultrasound are recommended. BI-RADS Category 0: Incomplete: Needs additional imaging evaluation. Reviewed, dictated and finalized at location A. MATIC SEAMER IMPRESSION: 1. Left breast asymmetry on the craniocaudal view. 2. Additional mammographic views and possible breast ultrasound are recommended . BI-RADS Category 0: Incomplete: Needs additional imaging evaluation.
== END 2023-08-18 13:15 | disposition home or self-care (01) ==
LOC: CHSIMG 13:16
PROVIDERS: PCP Internal Medicine; Visit Provider Internal Medicine
DX: Z12.31 Encounter for screening mammogram for malignant neoplasm of breast (principal); R92.8 Other abnormal and inconclusive findings on diagnostic imaging of breast
CPT/HCPCS: 77063; 77067

== ENCOUNTER 2023-08-26 08:49 | Outpatient (CLI) | payer MEDICARE, SELFPAY ==
--- NOTE | ~2023-08-26 | MMUS_ITS ---
EXAMINATION: MM diagnostic [facility] LT w zeke, US breast LT limited HISTORY: Left breast asymmetry on screening mammogram TECHNIQUE: Additional 3-D tomosynthesis images of the left breast were performed and synthetic 2-D im ages were generated. CAD analysis was submitted and interpreted. High resolution limited left breast ultrasound was performed. COMPARISON: 08/18/2023, 05/14/2022 FINDINGS: MAMMOGRAPHIC FINDINGS: There is a 3 mm oval, circumscribed, low density mass in the middle third of the upper outer quadrant of the breast at the 2:00 location, 6.5 cm from the nipple. No suspicious calcification or conservation or heritage architect ural distortion are identified. ULTRASOUND: There is a 4 mm cyst at the 2:00 location, 6 cm from the nipple corresponding to the mammographic fin ding in question. No suspicious cystic or solid mass is identified. IMPRESSION: 1. No mammographic or sonographic evidence of malignancy. 2. Recommend routine screening mammography in one year. BI-RADS Category 2: Benign finding(s). Reviewed, dictated and finalized at location A. TY CULTURIST APPRENTICE IMPRESSION: 1. No mammographic or sonographic evidence of malignancy. 2. Recommend routine screening mammography in one year. BI-RADS Category 2: Benign finding(s).
== END 2023-08-26 08:50 | disposition home or self-care (01) ==
LOC: CHSIMG 08:50
PROVIDERS: PCP Internal Medicine; Visit Provider Internal Medicine
DX: R92.8 Other abnormal and inconclusive findings on diagnostic imaging of breast (principal)
CPT/HCPCS: 76642; 77061; 77065; G0279

== ENCOUNTER 2024-03-03 13:05 | Outpatient (CLI) | payer MEDICARE, SELFPAY ==
--- NOTE | ~2024-03-03 | CT_ITS ---
EXAMINATION: CT lung screening DATE: 03/03/2024 13:57 INDICATION: Hx of nicotine dependence TECHNIQUE: Computed tomography (CT) of the chest was performed without intravenous contrast. Addition al 3D reconstructions utilizing coronal maximum intensity projection (MIP) were performed. Automated exposure control and iterative reconstruction technique were employed. The dose-length product was 59 .89 mGy-cm. COMPARISON: 01/28/2023 FINDINGS: Moderate emphysema. Unchanged pattern of moderate biapical pleural-parenchymal scarring. This include s an unchanged oblong 8 x 4 mm nodule at the right apex. There are a few scattered <4 mm calcified an d noncalcified pulmonary nodules in both lungs. There is a new region of septal line thickening and t ree-in-bud opacities in the basilar right lower lobe suspicious for pneumonia. No pulmonary edema or pleural effusion. Heart size is normal. Atherosclerotic coronary artery calcifications and likely jenny nting along the right coronary artery. No pericardial effusion. Thoracic aorta is normal in caliber. Visualized upper abdomen is unremarkable. Small sliding-type hiatal hernia. C6-C7 anterior spinal fus ion with anterior plate and screw fixation. Mild to moderate thoracic spondylosis. IMPRESSION: 1. Lung-RADS category 2: Benign appearance or behavior. Continue annual screening with noncontrast lo w-dose chest CT in 12 months. 2. New region of irregular septal line thickening and tree-in-bud opacities in the right lower lobe c onsistent with pneumonia. Reviewed, dictated and finalized at location A. IMPRESSION: 1. Lung-RADS category 2: Benign appearance or behavior. Continue annual screeni ng with noncontrast low-dose chest CT in 12 months. 2. New region of irregular septal line thickening and tree-in-bud opacities in the right lower lobe consistent with pneumonia.
== END 2024-03-03 13:06 | disposition home or self-care (01) ==
LOC: CHSIMG 13:06
PROVIDERS: PCP Internal Medicine; Visit Provider Internal Medicine
DX: Z12.2 Encounter for screening for malignant neoplasm of respiratory organs (principal); Z87.891 Personal history of nicotine dependence; R91.8 Other nonspecific abnormal finding of lung field
CPT/HCPCS: 71271

== ENCOUNTER 2024-03-13 13:18 | Outpatient (CLI) | payer MEDICARE, SELFPAY ==
--- NOTE | ~2024-03-13 | XR_ITS ---
Left wrist Technique: PA, oblique, lateral, and ulnar deviation views were obtained. Clinical History: Arthritis Findings: No acute fracture or dislocation is seen. Probable prior trapezium resection. Remaining xiao nt spaces are intact. Soft tissues are unremarkable. Impression: Probable prior trapezium resection. Reviewed, dictated and finalized at location . Impression: Probable prior trapezium resection.
--- NOTE | ~2024-03-13 | XR_ITS ---
Right wrist Technique: PA, oblique, lateral, and ulnar deviation views were obtained. Clinical History: Pain, arthritis Findings: No acute fracture or dislocation is seen. Osseous alignment is anatomic. There is mild dege nerative change of the first CMC joint and triscaphe joint. Soft tissues are unremarkable. Impression: Mild degenerative change, as above. Reviewed, dictated and finalized at location . Impression: Mild degenerative change, as above.
--- NOTE | ~2024-03-13 | XR_ITS ---
Right Hand Technique: PA, oblique, and lateral views were obtained. Clinical History: Pain, arthritis Findings: No acute fracture or dislocation is seen. Osseous alignment is anatomic. There is mild dege nerative change of the PIP joints of the fingers. Soft tissues are unremarkable. Impression: Mild degenerative change of the PIP joints of the fingers. Reviewed, dictated and finalized at location . Impression: Mild degenerative change of the PIP joints of the fingers.
--- NOTE | ~2024-03-13 | XR_ITS ---
Left Hand Technique: PA, oblique, and lateral views were obtained. Clinical History: Pain, arthritis Findings: No acute fracture or dislocation is seen. Probable prior resection of the trapezium. There is minimal degenerative change of the PIP joints of the fingers. Soft tissues are unremarkable. Impression: Minimal degenerative changes in the PIP joints. Probable prior trapezium resection. Reviewed, dictated and finalized at location . Impression: Minimal degenerative changes in the PIP joints. Probable prior trapezium resection.
== END 2024-03-13 13:19 | disposition home or self-care (01) ==
LOC: CHSIMG 13:20
PROVIDERS: PCP Internal Medicine; Visit Provider Internal Medicine
DX: M79.641 Pain in right hand (principal); M79.642 Pain in left hand
CPT/HCPCS: 73110; 73130

== ENCOUNTER 2024-04-18 16:25 | Emergency (ER) | payer MEDICARE, SELFPAY ==
--- NOTE | ~2024-04-18 | CT_ITS ---
EXAMINATION: CT brain wo con DATE: 04/18/2024 17:02 INDICATION: Head injury. TECHNIQUE: Computed tomography (CT) of the head was performed without intravenous contrast. The mA wa s adjusted according to patient size. Iterative reconstruction technique was employed. The dose-lengt h product was 681.00 mGy-cm. COMPARISON: None FINDINGS: There are scattered areas of low attenuation in the cerebral white matter. There is no intr acranial hemorrhage, acute infarction, or abnormal intracranial mass lesion. The ventricles are miko l in size. There are likely changes of ocular lens replacement surgeries. There is mild mucosal thick ening in the paranasal sinuses. There is a small right mastoid effusion. IMPRESSION: 1. Moderate nonspecific cerebral white matter disease, which likely represents chronic small vessel i schemic disease. Reviewed, dictated and finalized at location A. IMPRESSION: 1. Moderate nonspecific cerebral white matter disease, which likely represents chronic small vessel ischemic disease.
--- NOTE | ~2024-04-18 | XR_ITS ---
EXAMINATION: XR sacrum coccyx min 2V DATE: 04/18/2024 17:11 INDICATION: Low back pain. Sacrococcygeal pain. Fall. TECHNIQUE: 3 views of the sacrum and coccyx were obtained. COMPARISON: None. FINDINGS: There is lumbar dextrocurvature and mild spondylosis. No fracture. IMPRESSION: 1. No fracture. Reviewed, dictated and finalized at location A. IMPRESSION: 1. No fracture.
--- NOTE | ~2024-04-18 | CT_ITS ---
EXAMINATION: CT cervical spine wo con DATE: 04/18/2024 17:02 INDICATION: Head injury. TECHNIQUE: Computed tomography (CT) of the cervical spine was performed without intravenous contrast. Automated exposure control and iterative reconstruction technique were employed. The dose-length pro duct was 117.08 mGy-cm. COMPARISON: None FINDINGS: Emphysema is noted. There is mild scarring at the lung apices. C1 ring is ununited posterio rly, a normal variant. Bone alignment is normal. There are changes of anterior fusion procedure at C6 -C7 with healed interbody bone graft and anterior plate and screws. There is moderately decreased dis c height at C3-C4, mildly decreased disc height at C4-C5, and severely decreased disc height at C5-C6 . The following disc levels are specifically discussed: C2-C3: There is no uncovertebral joint osteoarthritis. There is severe bilateral facet joint osteoart hritis. There is no neural foraminal stenosis. There is no central canal stenosis. C3-C4: There is moderate right and mild left uncovertebral joint osteoarthritis. There is severe bila teral facet joint osteoarthritis. There is mild bilateral neural foraminal stenosis. There is mild ce ntral canal stenosis. C4-C5: There is mild bilateral uncovertebral joint osteoarthritis. There is mild right and severe lef t facet joint osteoarthritis. There is mild bilateral neural foraminal stenosis. There is mild centra l canal stenosis. C5-C6: There is severe right and mild left uncovertebral joint osteoarthritis. There is severe right and moderate left facet joint osteoarthritis. There is mild bilateral neural foraminal stenosis. Ther e is mild central canal stenosis. C6-C7: There is mild bilateral uncovertebral joint hypertrophy. There is moderate bilateral facet xiao nt osteoarthritis. There is mild bilateral neural foraminal stenosis. There is no central canal steno sis. C7-T1: There is no uncovertebral joint osteoarthritis. There is severe right and moderate left facet joint osteoarthritis. There is mild right neural foraminal stenosis. There is no central canal stenos is. IMPRESSION: 1. No fracture. 2. Severe cervical spondylosis. 3. Anterior fusion procedure at C6-C7. Reviewed, dictated and finalized at location A.
[2024-04-18 16:25] VITALS: BP 150/74; PULSE 90; RESP 18; TEMP 36.6; O2SAT 98
--- NOTE | 2024-04-18 16:44 | ED.FALL ---
HPI - Fall General Chief Complaint: Fall Stated Complaint: FALL Time Seen by Provider: 04/18/24 16:27 Related Data Home Medications Medication Instructions Recorded Confirmed amlodipine 5 mg tablet 5 mg PO DAILY 10/24/22 06/14/23 aspirin 81 mg tablet,delayed 81 mg PO DAILY 10/24/22 06/23/23 release bupropion HCl 150 mg 24 hr tablet, 150 mg PO DAILY 10/24/22 06/23/23 extended release famotidine 20 mg tablet 20 mg PO DAILY 10/24/22 06/23/23 levothyroxine 75 mcg tablet 88 mcg PO DAILY 10/24/22 06/23/23 metoprolol succ 25 1 tablet PO DAILY 10/24/22 06/23/23 mg-hydrochlorothiazide 12.5 mg tablet,ext.rel 24 hr pantoprazole 40 mg tablet,delayed 40 mg PO DAILY 10/24/22 06/23/23 release rosuvastatin 20 mg tablet 10 mg PO DAILY 10/24/22 06/23/23 sertraline 50 mg tablet 25 mg PO DAILY 10/24/22 06/23/23 B12 1 tablet PO DAILY 06/14/23 06/14/23 guaifenesin 600 mg tablet, 1,200 mg PO PRN 06/14/23 06/14/23 extended release 12 hr (Mucus Relief ER) Allergies Allergy/AdvReac Type Severity Reaction Status Date / Time GERRY Inhibitors Allergy Unknown Verified 04/18/24 16:30 clindamycin Allergy Unknown Verified 04/18/24 16:30 codeine Allergy Unknown Verified 04/18/24 16:30 cyclobenzaprine Allergy Unknown Verified 04/18/24 16:30 hydrocodone Allergy Vomiting Verified 04/18/24 16:30 lisinopril Allergy Unknown Verified 04/18/24 16:30 Penicillins Allergy Unknown Verified 04/18/24 16:30 Sulfa (Sulfonamide Allergy Unknown Verified 04/18/24 16:30 Antibiotics) [facility] Past Medical History Medical History (Updated 04/18/24 @ 17:31 by Jean Paul Calles MD) CAD (coronary artery disease) COPD (chronic obstructive pulmonary disease) History of uterine cancer HLD (hyperlipidemia) HTN (hypertension) Hypothyroidism Surgical History Surgical History (Updated 06/23/23 @ 06:39 by Patric Frost DO) History of coronary artery stent placement x1 - 2007 Social History Social History Smoking packs per day: 1 Smoking cigarettes per day: 20.0 Years smoked: 25 Smoking pack-years: 25.00 Smoking status: Former smoker Tobacco type: cigarettes Alcohol intake: current Drinks per week: 1 Substance use: current Substance use type: prescription drug Lack of Transportation: No Lack of Food: Never True Current Housing: I Have Housing Concerned About Future Housing: No Difficulty Paying Gas/Electric Bills: No Difficulty Paying for Meds: No Currently Unemployed: No Education: Bachelor's Degree Difficulty w/ Childcare or Family Care: No Living arrangements: alone Spiritual care concerns: No Discharge Plan Discharge Clinical Impression: Fall, Contusion Patient Disposition: Home, Self-Care Condition: Stable Instructions: Contusion in Adults (ED) Prescriptions: No Action amlodipine 5 mg tablet 5 mg PO DAILY aspirin 81 mg Tablet,Delayed Release (Dr/Ec) 81 mg PO DAILY levothyroxine 75 mcg tablet 88 mcg PO DAILY famotidine 20 mg tablet 20 mg PO DAILY pantoprazole 40 mg tablet,delayed release (DR/EC) 40 mg PO DAILY sertraline 50 mg tablet 25 mg PO DAILY rosuvastatin 20 mg tablet 10 mg PO DAILY bupropion HCl 150 mg tablet extended release 24 hr 150 mg PO DAILY metoprolol ponce-hydrochlorothiaz 25-12.5 mg Tablet Extended Release 24 Hr 1 tablet PO DAILY benzonatate 100 mg Capsule 200 mg PO TID 10 Days Qty: 60 0RF albuterol sulfate [Proventil HFA] 90 mcg/actuation Hfa Aerosol Inhaler 2 puff inhalation QIDRT PRN (Reason: Shortness Of Breath) Qty: 1 0RF ipratropium-albuterol 0.5 mg-3 mg(2.5 mg base)/3 mL Solution For Nebulization 3 ml inhalation Q6HRT Qty: 180 0RF fluticasone propion-salmeterol [Advair Diskus] 100-50 mcg/dose Blister With Device 1 ea inhalation Q12HRT Qty: 1 1RF (DME) nebulizers Misc See Rx Instructions .Ro
[2024-04-18 17:38] VITALS: BP 132/75; PULSE 78; RESP 14; O2SAT 97
== END 2024-04-18 17:38 | disposition home or self-care (01) ==
LOC: CHSED 17:32
PROVIDERS: Emergency Provider Emergency Medicine; PCP Internal Medicine
DX: T14.8XXA Other injury of unspecified body region, initial encounter (principal); I25.10 Atherosclerotic heart disease of native coronary artery without angina pectoris; J44.9 Chronic obstructive pulmonary disease, unspecified; E78.5 Hyperlipidemia, unspecified; E03.9 Hypothyroidism, unspecified; I10 Essential (primary) hypertension; Z87.891 Personal history of nicotine dependence; W19.XXXA Unspecified fall, initial encounter
CPT/HCPCS: 70450; 72125; 72220; 99284

== ENCOUNTER 2024-07-20 16:46 | Emergency (ER) | payer MEDICARE, SELFPAY ==
[2024-07-20] VITALS (7 sets, daily range): BP systolic 119–150; BP diastolic 70–88; PULSE 20–113; RESP 18–24; TEMP 36.4–37.1; O2SAT 90–98
--- NOTE | ~2024-07-20 | XR_ITS ---
EXAMINATION: XR chest 1V portable DATE: 07/20/2024 17:14 INDICATION: Shortness of breath. TECHNIQUE: A single frontal view of the chest was obtained. COMPARISON: Chest 2 views 10/24/2022, chest CT 03/03/2024 FINDINGS: The lungs are hyperexpanded with lucencies, consistent with emphysema. There is no pneumoni a, pleural effusion, or pneumothorax. The heart size is normal. There are changes of anterior fusion procedure in cervical spine. IMPRESSION: 1. Emphysema. Reviewed, dictated and finalized at location A. ING MACHINE REPAIRER IMPRESSION: 1. Emphysema.
--- NOTE | 2024-07-20 17:10 | PC.NURSE ---
covid test administerd & sent to lab
[2024-07-20] MEDS: methylPREDNISolone SOD SUCC 125 MG VIAL IV PUSH (17:13)
[2024-07-20] MEDS: IPRATROPIUM 0.5 MG/ALBUTEROL SULFATE 2.5 MG AMPUL.NEB 3 ML INHALATION (17:15)
[2024-07-20 17:27] LABS: Basophils Absolute Auto 0.03 K/mm3 (0.00-0.10); Basophils Percent Auto 0.5 % (0.0-1.0); Eosinophils Absolute Auto 0.11 K/mm3 (0.02-0.50); Eosinophils Percent Auto 1.9 % (1.0-6.0); Hematocrit 45.6 % (35.0-42.0); Hemoglobin 15.7 g/dL (11.7-13.8); Immature Granulocyte Absolute 0.01 K/mm3 (0.00-0.00); Immature Granulocyte Percent A 0.2 % (0.0-0.0); Lymphocytes Absolute Auto 1.65 K/mm3 (1.10-4.50); Lymphocytes Percent Auto 28.4 % (18.0-42.0); Mean Corpuscular HGB Conc 34.4 g/dL (32-36); Mean Corpuscular Hemoglobin 33.3 pg (27.0-31.0); Mean Corpuscular Volume 96.8 fL (78.0-102.0); Mean Platelet Volume 9.3 fl (9.2-11.8); Monocytes Absolute Auto 0.42 K/mm3 (0.10-0.90); Monocytes Percent Auto 7.2 % (2.0-11.0); Neutrophils Percent Auto 61.8 % (50.0-70.0); Platelet Count Result 158 K/mm3 (150-420); Red Blood Count 4.71 M/mm3 (4.20-5.40); Red Cell Distribution Width 12.2 % (11.6-14.4); White Blood Count 5.8 K/mm3 (4.8-10.8)
[2024-07-20 17:35] LABS: Magnesium 1.7 mg/dL (1.8-2.4)
[2024-07-20 17:39] LABS: Partial Thromboplastin Time 27.3 Sec (23.9-30.70); Prothrombin Time 10.7 Seconds (9.50-12.1)
[2024-07-20 17:44] LABS: Lactic Acid Reflex 1.4 mmol/L (0.4-2.0)
[2024-07-20 17:48] LABS: SARS-CoV-2 RNA PCR Negative (Negative)
[2024-07-20 17:49] LABS: Alanine Aminotransferase 17 U/L (14-59); Albumin Level 3.5 g/dL (3.4-5.0); Alkaline Phosphatase 108 U/L (46-116); Aspartate Amino Transferase 19 U/L (15-37); Bilirubin,Total 0.5 mg/dL (0.00-1.00); Blood Urea Nitrogen 11 mg/dL (7-18); Calcium 9.2 mg/dL (8.5-10.1); Estimated CRCL calculation 38 ml/min; Estimated Glomerular Filt Rate 56; Glucose 96 mg/dL (70-99); NT Pro B Type Natriuretic Pept 103 pg/mL (0-450); Total Protein 7.5 g/dL (6.4-8.2)
[2024-07-20 17:50] LABS: Influenza A QL RT-PCR Negative (Negative); Influenza B QL RT-PCR Negative (Negative); RSV RNA, RT-PCR Negative (Negative)
[2024-07-20 17:53] LABS: Chloride 100 mmol/L (98-108); Osmolality Calculated 283 mOsm/kg (285-295); Potassium 3.7 mmol/L (3.5-5.1); Sodium 137 mmol/L (136-145)
[2024-07-20 17:54] LABS: Anion Gap 12 mmol/L (4-12); Carbon Dioxide 25 mmol/L (21-32)
--- NOTE | 2024-07-20 18:08 | ED_ITS ---
HPI - URI/Sore Throat General Chief Complaint: Upper Respiratory Infection Stated Complaint: cough/shortness of breath Source: patient Mode of arrival: ambulatory Limitations: no limitations History of Present Illness HPI Narrative: Patient presents with some cough with shortness of breath nasal congestion for the last week, with some audible wheezing has a history of COPD no fever chills no chest pain no abdominal pain. MD elicited complaint: cough Pertinent past history: COPD Onset (ago): day(s) Consistency: constant Severity: mild Related Data Home Medications Medication Instructions Recorded Confirmed amlodipine 5 mg tablet 5 mg PO DAILY 10/24/22 07/20/24 aspirin 81 mg tablet,delayed 81 mg PO DAILY 10/24/22 07/20/24 release bupropion HCl 150 mg 24 hr tablet, 150 mg PO DAILY 10/24/22 07/20/24 extended release famotidine 20 mg tablet 20 mg PO DAILY 10/24/22 07/20/24 levothyroxine 75 mcg tablet 88 mcg PO DAILY 10/24/22 07/20/24 metoprolol succ 25 1 tablet PO DAILY 10/24/22 07/20/24 mg-hydrochlorothiazide 12.5 mg tablet,ext.rel 24 hr pantoprazole 40 mg tablet,delayed 40 mg PO DAILY 10/24/22 07/20/24 release rosuvastatin 20 mg tablet 10 mg PO DAILY 10/24/22 07/20/24 sertraline 50 mg tablet 25 mg PO DAILY 10/24/22 07/20/24 B12 1 tablet PO DAILY 06/14/23 07/20/24 Allergies Allergy/AdvReac Type Severity Reaction Status Date / Time GERRY Inhibitors Allergy Unknown Verified 07/20/24 16:57 clindamycin Allergy Unknown Verified 07/20/24 16:57 codeine Allergy Unknown Verified 07/20/24 16:57 cyclobenzaprine Allergy Unknown Verified 07/20/24 16:57 hydrocodone Allergy Vomiting Verified 07/20/24 16:57 lisinopril Allergy Unknown Verified 07/20/24 16:57 Penicillins Allergy Unknown Verified 07/20/24 16:57 Sulfa (Sulfonamide Allergy Unknown Verified 07/20/24 16:57 Antibiotics) Review of Systems Review of Systems: All systems reviewed & are unremarkable except as noted in HPI and below PMFSH Past Medical History Medical History CAD (coronary artery disease) COPD (chronic obstructive pulmonary disease) History of uterine cancer HLD (hyperlipidemia) HTN (hypertension) Hypothyroidism Surgical History Surgical History History of coronary artery stent placement x1 - 2006 Social History Social History Smoking packs per day: 1 Smoking cigarettes per day: 20.0 Years smoked: 25 Smoking pack-years: 25.00 Smoking status: Former smoker Tobacco type: cigarettes Alcohol intake: current Drinks per week: 1 Substance use: current Substance use type: prescription drug Lack of Transportation: No Lack of Food: Never True Current Housing: I Have Housing Concerned About Future Housing: No Difficulty Paying Gas/Electric Bills: No Difficulty Paying for Meds: No Currently Unemployed: No Education: Bachelor's Degree Difficulty w/ Childcare or Family Care: No Living arrangements: alone Spiritual care concerns: No Exam Const: General: healthy appearing Nutritional Appearance: well nourished Orientation/consciousness: patient oriented x3 Limitations: no limitations HENMT: Head: normal to inspection Eyes: Conjunctivae: conjunctivae normal Pupils: Equal, round and reactive pupils present Neck: Neck: normal visual inspection Chest: Chest palpation & inspection: normal inspection of the chest Resp: Effort & Inspection: normal respiratory effort Auscultation: wheezes Cardio: Rate: regular rate Rhythm: regular rhythm GI: GI Palp: Yes Soft to palpation Auscultation: normal bowel sounds Urinary Catheter: Urinary Catheter: patent and draining Back/Spine/Pelvis: Back: no CVA tenderness Skin: General skin exam: normal color Rashes: no rashes Neuro: General: patient oriented x3 and moves all extremities Extrem: General: normal to inspection Course Course Emergency Course: Patient received a breathing treatment and after reassessment symptoms have improved received some IV steroids, will give patient a dose of Levaquin. X-ray shows emphysema with no acute cardiopulmonary abnormality white count is 5.6. Vital Signs Vital signs: Vital Signs Temperature 36.4 C L 07/20/24 16:48 Pulse Rate 113 H 07/20/24 16:48 Respiratory Rate 24 H 07/20/24 16:48 Blood Pressure 150/88 H 07/20/24 16:48 Pulse Oximetry 90 07/20/24 16:48 Oxygen Delivery Room Air 07/20/24 16:48 Temperature 36.4 C L 07/20/24 16:48 Pulse Rate 81 07/20/24 17:20 Respiratory Rate 20 07/20/24 17:20 Blood Pressure 119/70 07/20/24 17:20 Pulse Oximetry 94 07/20/24 17:20 Oxygen Delivery Room Air 07/20/24 17:20 MDM - URI/Sore Throat Lab Data 07/20/24 17:21 07/20/24 17:21 Labs: Lab Results 07/20/24 Range/Units 17:21 WBC 5.8 (4.8-10.8) K/mm3 RBC 4.71 (4.20-5.40) M/mm3 Hgb 15.7 H (11.7-13.8) g/dL Hct 45.6 H (35.0-42.0) % MCV 96.8 (78.0-102.0) fL MCH 33.3 H (27.0-31.0) pg MCHC 34.4 (32-36) g/dL RDW 12.2 (11.6-14.4) % Plt Count 158 (150-420) K/mm3 MPV 9.3 (9.2-11.8) fl Immature Gran % (Auto) 0.2 H (0.0-0.0) % Neut % (Auto) 61.8 (50.0-70.0) % Lymph % (Auto) 28.4 (18.0-42.0) % [place]ah % (Auto) 7.2 (2.0-11.0) % Eos % (Auto) 1.9 (1.0-6.0) % Baso % (Auto) 0.5 (0.0-1.0) % Lymph # (Auto) 1.65 (1.10-4.50) K/mm3 [place]ah # (Auto) 0.42 (0.10-0.90) K/mm3 Eos # (Auto) 0.11 (0.02-0.50) K/mm3 Baso # (Auto) 0.03 (0.00-0.10) K/mm3 Abs Immat Gran (auto) 0.01 H (0.00-0.00) K/mm3 Absolute Neuts (auto) 3.60 (1.70-7.20) K/mm3 Absolute Nucleated RBC 0.00 (0.00-0.00) K/mm3 Nucleated RBC % 0.0 (0-0.0) % PT 10.7 (9.50-12.1) Seconds INR 1.0 APTT 27.3 (23.9-30.70) Sec Sodium 137 (136-145) mmol/L Potassium 3.7 (3.5-5.1) mmol/L Chloride 100 (98-108) mmol/L Carbon Dioxide 25 (21-32) mmol/L Anion Gap 12 (4-12) mmol/L BUN 11 (7-18) mg/dL Creatinine 0.97 (0.55-1.02) mg/dL Estim Creat Clear Calc 38 ml/min Estimated GFR 56 L (59 - ) Glucose 96 (70-99) mg/dL Calculated Osmolality 283 L (285-295) mOsm/kg Lactic Acid 1.4 (0.4-2.0) mmol/L Calcium 9.2 (8.5-10.1) mg/dL Magnesium 1.7 L (1.8-2.4) mg/dL Total Bilirubin 0.5 (0.00-1.00) mg/dL AST 19 (15-37) U/L ALT 17 (14-59) U/L Alkaline Phosphatase 108 (46-116) U/L NT-Pro-B Natriuret Pep 103 (0-450) pg/mL Total Protein 7.5 (6.4-8.2) g/dL Albumin 3.5 (3.4-5.0) g/dL Influenza A (RT-PCR) Negative (Negative) Influenza B (RT-PCR) Negative (Negative) RSV (RT-PCR) Negative (Negative) SARS-CoV-2 RNA (RT-PCR) Negative (Negative) Critical Care Time Critical Care Time Critical Care Time: No Discharge Plan Discharge Clinical Impression: COPD (chronic obstructive pulmonary disease) Qualifiers: COPD type: unspecified COPD Qualified Code(s): J44.9 - Chronic obstructive pulmonary disease, unspecified Upper respiratory infection Qualifiers: URI type: unspecified URI Qualified Code(s): J06.9 - Acute upper respiratory infection, unspecified Patient Disposition: Home, Self-Care Condition: Stable Instructions: Antibiotic Form, Upper Respiratory Infection (ED) Additional Instructions: advised to take medication as prescribed and follow with primary within 1 week further evaluation treatment. Prescriptions: New levofloxacin 500 mg tablet 500 mg PO DAILY Qty: 6 0RF prednisone 20 mg tablet 20 mg PO DAILY Qty: 5 0RF No Action amlodipine 5 mg tablet 5 mg PO DAILY aspirin 81 mg Tablet,Delayed Release (Dr/Ec) 81 mg PO DAILY levothyroxine 75 mcg tablet 88 mcg PO DAILY famotidine 20 mg tablet 20 mg PO DAILY pantoprazole 40 mg tablet,delayed release (DR/EC) 40 mg PO DAILY sertraline 50 mg tablet 25 mg PO DAILY rosuvastatin 20 mg tablet 10 mg PO DAILY bupropion HCl 150 mg tablet extended release 24 hr 150 mg PO DAILY metoprolol ponce-hydrochlorothiaz 25-12.5 mg Tablet Extended Release 24 Hr 1 tablet PO DAILY albuterol sulfate [Proventil HFA] 90 mcg/actuation Hfa Aerosol Inhaler 2 puff inhalation QIDRT PRN (Reason: Shortness Of Breath) Qty: 1 0RF ipratropium-albuterol 0.5 mg-3 mg(2.5 mg base)/3 mL Solution For Nebulization 3 ml inhalation Q6HRT Qty: 180 0RF fluticasone propion-salmeterol [Advair Diskus] 100-50 mcg/dose Blister With Device 1 ea inhalation Q12HRT Qty: 1 1RF (DME) [place]izers [facility] [place] Rx Instructions .Route Qty: 1 0RF Rx Instructions: As directed B12 1 tablet PO DAILY Follow-up/Referrals: Aarti Fraire MD [Primary Care Provider] - Time of Disposition: 18:13
[2024-07-20] MEDS: levoFLOXacin 500 MG TABLET PO (18:13)
--- NOTE | 2024-07-21 12:42 | PC.NURSE ---
blood culture preliminary no growth
== END 2024-07-20 18:19 | disposition home or self-care (01) ==
PROVIDERS: Emergency Provider Emergency Medicine; PCP Internal Medicine
DX: J06.9 Acute upper respiratory infection, unspecified (principal); J44.9 Chronic obstructive pulmonary disease, unspecified; I25.10 Atherosclerotic heart disease of native coronary artery without angina pectoris; I10 Essential (primary) hypertension; E78.5 Hyperlipidemia, unspecified; E03.9 Hypothyroidism, unspecified; Z85.42 Personal history of malignant neoplasm of other parts of uterus; Z79.82 Long term (current) use of aspirin; Z95.5 Presence of coronary angioplasty implant and graft; Z87.891 Personal history of nicotine dependence; Z79.51 Long term (current) use of inhaled steroids; Z20.822 Contact with and (suspected) exposure to COVID-19
CPT/HCPCS: 36415; 71045; 80053; 83605; 83735; 83880; 85025; 85610; 85730; 87040; 87637; 94640; 96374; 99284; A9270; J2919

== ENCOUNTER 2024-08-11 10:02 | Outpatient (CLI) | payer MEDICARE, SELFPAY ==
--- NOTE | ~2024-08-11 | XR_ITS ---
EXAMINATION: XR chest 2V DATE: 08/11/2024 10:21 INDICATION: Cough and congestion and shortness of breath. TECHNIQUE: Frontal and lateral views of the chest were obtained. COMPARISON: Chest single view 07/20/2024 FINDINGS: There are lucencies and interstitial opacities in the lungs, consistent with emphysema. No pleural effusion or pneumothorax. The heart size is normal. There are changes of anterior fusion proc edure in cervical spine. There is a suture anchor in right humeral head. IMPRESSION: 1. Emphysema. Reviewed, dictated and finalized at location A. CLEANER IMPRESSION: 1. Emphysema.
[2024-08-11 10:17] LABS: Basophils Absolute Auto 0.03 K/mm3 (0.00-0.10); Basophils Percent Auto 0.5 % (0.0-1.0); Eosinophils Absolute Auto 0.09 K/mm3 (0.02-0.50); Eosinophils Percent Auto 1.4 % (1.0-6.0); Hematocrit 44.1 % (35.0-42.0); Hemoglobin 15.1 g/dL (11.7-13.8); Immature Granulocyte Absolute 0.01 K/mm3 (0.00-0.00); Immature Granulocyte Percent A 0.2 % (0.0-0.0); Lymphocytes Absolute Auto 1.09 K/mm3 (1.10-4.50); Mean Corpuscular HGB Conc 34.2 g/dL (32-36); Mean Corpuscular Hemoglobin 32.9 pg (27.0-31.0); Mean Corpuscular Volume 96.1 fL (78.0-102.0); Mean Platelet Volume 8.7 fl (9.2-11.8); Monocytes Absolute Auto 0.55 K/mm3 (0.10-0.90); Monocytes Percent Auto 8.6 % (2.0-11.0); Neutrophils Absolute Auto 4.64 K/mm3 (1.70-7.20); Neutrophils Percent Auto 72.3 % (50.0-70.0); Platelet Count Result 213 K/mm3 (150-420); Red Blood Count 4.59 M/mm3 (4.20-5.40); Red Cell Distribution Width 12.1 % (11.6-14.4); White Blood Count 6.4 K/mm3 (4.8-10.8)
[2024-08-11 10:46] LABS: Strep Group A RT-PCR NOT DETECTED (Negative)
[2024-08-11 10:52] LABS: Anion Gap 11 mmol/L (4-12); Blood Urea Nitrogen 7 mg/dL (7-18); Calcium 9.1 mg/dL (8.5-10.1); Carbon Dioxide 27 mmol/L (21-32); Chloride 98 mmol/L (98-108); Estimated Glomerular Filt Rate 58; Glucose 89 mg/dL (70-99); NT Pro B Type Natriuretic Pept 179 pg/mL (0-450); Osmolality Calculated 279 mOsm/kg (285-295); Potassium 4.7 mmol/L (3.5-5.1); SARS-CoV-2 RNA PCR Negative (Negative); Sodium 136 mmol/L (136-145)
[2024-08-11 10:55] LABS: Influenza A QL RT-PCR Negative (Negative); Influenza B QL RT-PCR Negative (Negative); RSV RNA, RT-PCR Negative (Negative)
== END 2024-08-11 10:03 | disposition home or self-care (01) ==
LOC: CHSLAB 10:04
PROVIDERS: PCP Internal Medicine; Visit Provider Internal Medicine
DX: J06.9 Acute upper respiratory infection, unspecified (principal); R05.9 Cough, unspecified; J43.9 Emphysema, unspecified; J02.9 Acute pharyngitis, unspecified; R06.9 Unspecified abnormalities of breathing
CPT/HCPCS: 36415; 71046; 80048; 83880; 85025; 87637; 87651

== ENCOUNTER 2024-12-09 21:14 | Emergency (ER) | payer MEDICARE, SELFPAY ==
--- NOTE | ~2024-12-09 | XR_ITS ---
XR wrist RT min 3V Ordering provider: Ronaldo De La Vega MD History: . FALL. NON SPECIFIC RIGHT WRIST PAIN AFTER FALL. . Comparison: None. FINDINGS: BONES: No acute fracture or dislocation. No definite scaphoid fracture. JOINT SPACES: Osteoarthritic changes of the first carpometacarpal joint and the scaphotrapezial joint . Narrowing of the radiocarpal joint is noted. SOFT TISSUES: Normal. IMPRESSION: No acute osseous abnormality right wrist. Polyarticular osteoarthritic changes. Reviewed, dictated and finalized at location A.
--- NOTE | ~2024-12-09 | XR_ITS ---
XR hand RT min 3V Ordering provider: Ronaldo De La Vega MD History: . FALL. ABRASIONS TO POSTERIOR RIGHT HAND. . Comparison: None. FINDINGS: BONES: No acute fracture or dislocation. JOINT SPACES: Narrowing of the proximal and distal interphalangeal joints. Osteoarthritic changes of the first carpometacarpal joint. SOFT TISSUES: Normal. IMPRESSION: No acute osseous abnormality right hand. Polyarticular osteoarthritic changes. Reviewed, dictated and finalized at location A.
--- OUTSIDE RECORDS SUMMARY | 2024-12-09 21:16 | XMS_ITS | Referral Summary ---
Author Organization [facility] Address [address] [place] [address] Care Team Providers Care Pantograph Transferrer Name Role Phone Aarti Fraire MD Unavailable [phone] Aarti Fraire MD Primary Care Provider [phone] Allergies Active Allergy Reactions Criticality Noted Date Comments Cristo Inhibitors Other (See comments) Low 10/09/2017 Unsure of reaction. 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 Take with food. 15 tablet 8 Active Additional Information Patient not taking.Reported on 06/10/2022 aspirin 81 mg enteric coated tablet Take 1 tablet (81 mg total) by mouth daily Active famotidine (PEPCID) 20 mg tablet Take 1 tablet (20 mg total) by mouth daily Active buPROPion XL (WELLBUTRIN XL) 150 mg 24 hr tablet 2 Active amLODIPine (NORVASC) 5 mg tablet 3 Active metoprolol XL (TOPROL-XL) 25 mg extended release tablet Take 1 tablet (25 mg total) by mouth daily [address] (PROTONIX) 40 mg EC tablet 3 Active levothyroxine (SYNTHROID) 88 mcg tablet 3 Active rosuvastatin (CRESTOR) 40 mg tablet TAKE 1 TABLET(40 MG) BY MOUTH DAILY 90 tablet 2 4 Active Active Problems Problem Noted Date Diagnosed Date 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 Monthly or less 06/10/2022 Q2: How many drinks containi ng alcohol do you have on a typical day when you are drinking? 1 or 2 06/10/2022 Q3: How often do you have si x or more drinks on one occasion? 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 Gender Identity Not on file Sexual Orientation Not on file Occupation Industry Job Start Date Job End Date [employer] Not on file Not on file Not on file Last Filed Vital Signs Vital Sign Reading Time Taken Comments Blood Pressure 128/60 06/15/2023 11:26 AM CDT Pulse 64 06/15/2023 11:26 AM CDT Temperature 36.9 C (98.5 F) 06/10/2022 12:43 PM CDT Respiratory Rate 14 06/15/2023 11:26 AM CDT Oxygen Saturation 92% 06/15/2023 11:26 AM CDT Inhaled Oxygen Concentration - - Weight 59.9 kg (132 lb) 06/15/2023 11:26 AM CDT Height 167.6 cm (5' 6 ) 06/15/2023 11:26 AM CDT Body Mass Index 21.31 06/15/2023 11:26 AM CDT Plan of Treatment Not on file Insurance [facility] MEDICARE ADVANTAGE [facility] MEDICARE ADVANTAGE Care Teams Pantograph Transferrer Relationship Specialty Start Date End Date Aarti Fraire MD [address] [place] [address] PCP - General Internal Medicine 06/02/22 Aarti Fraire MD [address] [place] [address] Referring Physician Internal Medicine 06/02/22
--- OUTSIDE RECORDS SUMMARY | 2024-12-09 21:16 | XMS_ITS | Data Portability ---
Author Organization [facility], [address] [place] [address] Neurology ([place]) Address [address] [place] [id number] Care Team Providers Care Test Design Engineer Name Role Phone WINSTON CONNELL Primary Care Provider [phone] WINSTON CONNELL Referring Provider Assessment Encounter Date Assessment Date Assessment LastModified by Organization Details LastModified Time 03/27/2024 03/27/2024 I discussed with the patient that she has a subcutaneous mass consistent with a ganglion in the subcutaneous tissue overlying the radial aspect of her left ring finger proximal interphalangeal joint. Treatment options were discussed with her. She would like to have the mass excised. She is being scheduled for excision of the mass under local anesthesia with IV sedation. The surgical procedure was discussed with her in detail, including risks, benefits, and possible complications. Possible complications discussed included infection and the possibility of recurrence of the mass. All of her questions were answered, and she is agreeable to proceed with the proposed surgical procedure. Orthopedics/Podiatry patient history form, including review of systems, was filled out by the patient and reviewed during the office visit. [email or web address] Not available 03/29/2024 06:50:32 04/14/2024 04/14/2024 IMPRESSION: 1. Clinical features certainly suggestive of seropositive RA (rheumatoid factor weakly positive, negative CCP). I did discuss with the patient today the pathophysiology of rheumatoid arthritis and potential treatments. We reviewed the use of oral DMARDs versus synthetic DMARDs and biologics. Plaquenil is certainly a reasonable starting point. It is a very mild immunomodulator that is generally well tolerated and may be sufficient to control her arthritic symptoms. 2. Osteoarthritis. PLAN: 1. We will provide a brief course of prednisone to help move along the process of controlling her synovitis while the hydroxychloroquine has a chance to kick in. Typically, as I discussed with the patient today, it may take up to 8-10 weeks to see the full benefit of hydroxychloroquine. We will provide the patient with prednisone 10 mg daily for 2 days, then 5 mg orally daily for 2 days, then off. 2. Continue current hydroxychloroquine therapy. 3. Labs monthly for DMARD monitoring as ordered. 4. Plaquenil screening eye exams once yearly. I discussed with the patient today the risk of retinal toxicity that can be potentially irreversible. I emphasized the importance of these Plaquenil screening eye exams, but also the rarity of the retinopathy. 5. Followup visit in 4-1/2 months at my [facility]. Today I had a lengthy discussion with the patient regarding the diagnosis, my clinical impressions, the potential pharmacotherapies and I answered and addressed all of her questions and concerns in detail. I personally spent a total of 60 minutes on the patient on this date of service including both mxhp-jo-oapd and inr-mylo-ze-face time excluding any separately reportable services. [email or web address] Not available 04/18/2024 11:15:46 04/19/2024 04/19/2024 The history and physical dated completed by {{}}has been reviewed, the patient has been examined and no change has occurred in the patient s condition since the history and physical was completed. [email or web address] Not available 04/19/2024 05:22:48 05/02/2024 05/02/2024 Chief complaint: Left ring finger mucous cyst excision History of present illness: Patient is a 79-year-old female presenting to the clinic for postoperative evaluation 2 weeks following a left ring finger mucous cyst excision. Patient reports she is doing well and her pain is well-controlled. She denies any erythema or drainage from her incision. Patient does report some very mild tingling at the tip of her left ring finger. Exam: Patient is in no acute distress and is well-dressed and well-nourished. Patient has appropriate mood and affect. Respirations are nonlabored. Sclera are nonicteric. Patient has a well-healed surgical incision that is without erythema or ecchymosis. She has slightly decreased range of motion of her left ring finger but is able to flex and extend all other fingers without difficulty. Radial pulses 2+. Capillary refill is eaton and occurs within 2 seconds. Assessment: Left ring finger mucous cyst excision Plan: Patient is doing well following her surgery. Sutures removed in office today. She was instructed on proper postoperative care including scar tissue massage and Theraputty. Patient will call the office with any questions or concerns. [email or web address] Not available 05/02/2024 16:44:01 Plan of Treatment Reminders Order Date Submit Date Provider Last Modified By Organization Details Last Modified Time Details Appointments Establish ed Patient 15.EST 2024 11:30A M Dr. Magdy Lemus Not available Not available Not available Lab None recorded. Referral None recorded. Procedures None recorded. Surgeries None recorded. Imaging None recorded. Medication Orders tramadol 50 mg tablet 2023 024 [id number], [address], [place], [id number], 04/19/2024 14:32:34 Patient TargetsNo targets recorded. Patient InstructionsNo instructions recorded. Reason for Referral None Reported. Results Created Date Observation Date Name Description Value Unit Range Abnormal Flag Note LastModifiedBy Organization Detail LastModifiedTime 04/19/20 24 04/24/2024 surgi walker patho logy study tissue exam biopsy [facility] [address],[place] [address] Ph. [phone] Chucky Mcclain MD, PhD, Medic al [facility] FRANKLIN AKINS MD nt: ROSCOE MAST HY Sampl e ID: [id number] Repor t Statu s: Final :0 1944 Case #: [id number] Age: 78 Y Gende r: F Date Colle cted: 04/19 MRN # : [id number] Date Recei lorene: 04/19 Repor rakesh Date: 04/24 FINAL DIAGN OSIS: Skin, left ring finge r, excis ion: - Gangl ion cyst Elect asher templeton Vershaila ied by Rayo Farmer MD Elect asher messina 04/24 09:57 SPECI MEN SOURC E: Skin, left ring finge r, excis ion GROSS DESCR IPTIO N: The speci men conta iner( s) and requi sitio n have the same patie nt name. Recei lorene in 10% neutr al buffe red forma rayo for forma rayo-f ixed paraf fin-e mbedd ed secti ons label ed A, left ring finge r mass is a singl e fragm ent of yello w-polanco soft tissu e that is 0.8 x 0.7 x 0.4 cm in great est [facility] [place]. The speci men is jennifer barkerr china submi tted for histo logic study in one casse tte. [facility] MATIO N: Skin biops y, left ring finge r, local ized swell ing, mass and lump. Not Available [facility] [address] [place] [address], [address], 04/24/2024 11:00:13 Result Notes None recorded. Problems Name Problem SNOMED Code Status Onset Date Resolution Date Notes Provider Name and Address Organization Details Recorded Time Hyperlipidemia 69137166 Active 2023 [facility] 4 11:26:12 Hypertensive disorder 72437458 Active [address]23 [facility] 4 11:26:22 Peripheral vascular disease 436058524 Active [address] [facility] 4 11:26:31 Gastroesophage al reflux disease 865307439 Active [address] [facility] 4 11:26:42 Celiac disease 540063502 Active [address] [facility] 4 11:26:57 History of malignant neoplasm of vulva 285100662 Active [address] [facility] 4 11:27:11 Lump on finger 502493135 Active [address] [facility] 4 12:02:01 Lump on finger 382685878 Active [address] [facility] 4 12:02:25 Seropositive rheumatoid arthritis 873974758 Active 2023 Darryl Apple [facility] 4 16:36:21 Osteoarthritis 456685300 Active 2023 Magdy Lemus MD [address] [place] [address], [phone], [facility] 4 13:20:29 Problem Notes None recorded. Procedures Surgical History Date Name Laterality Status Provider Name and Address Organization Details Recorded Time 04/19/[address] Operative Report completed Franklin Trinh MD [address] [place] [address], [phone], [facility] 04/20/2024 05:36:07 04/19/20 24 excision of mucous cyst of finger completed [facility] 04/25/2024 17:26:11 placement of stent in cardiac conduit completed [facility] 03/27/2024 11:23:39 Appendectomy completed [facility] 03/27/2024 11:23:46 hysterectomy completed [facility] 03/27/2024 11:23:55 Carpal tunnel surgery completed [facility] 03/27/2024 11:24:10 Yvette arthrs srg rt8tr cuf rpr completed [facility] 03/27/2024 11:24:16 bilateral cataract surgery completed [facility] 03/27/2024 11:24:29 surgical procedure on cervical spine completed [facility] 03/27/2024 11:24:37 operation on vulva completed [facility] 03/27/2024 11:25:13 operation on rectum completed [facility] 03/27/2024 11:25:30 Prq card stent w/angio 1 vsl completed Not Available Health Note 04/12/2024 12:53:15 Colonoscopy with biopsy completed Not Available Health Note 04/12/2024 12:53:15 Partial hysterectomy completed Not Available Health Note 04/12/2024 12:53:15 Removal of tonsils completed Not Available Health Note 04/12/2024 12:53:15 Imaging Results None recorded. Procedure Notes None recorded. Medical Equipment None Reported. Allergies Allergen ID Allergen Name Allergen Category Reaction Reaction Severity Criticality Documentation Date Start Date Code Code System Note Provider Name and Address Organization Details Recorded Time 6780636 Product containin g penicilli n (product) medicatio n swelling severe high 04/19/2024 33911 8001 SNOMED Not Available Not Available Not Available 8871763 Substance with sulfonami de structure and antibacte rial mechanism of action (substanc e) medicatio n headache mild low 04/19/2024 84512 8003 SNOMED Not Available Not Available Not Available 0772036 hydrocodo ne Not available vomiting moderate low 04/19/2024 5489 RxNorm Not Available Not Available Not Available 0718631 codeine medicatio n vomiting moderate low 04/19/2024 2670 RxNorm Not Available Not Available Not Available 5796068 Voltaren medicatio n Not available Not available unabletoasse ss 04/19/2024 28794 6 RxNorm Not Available Not Available Not Available Medications Name Sig Start Date Stop Date Status Note LastModified by Organization Details LastModified Time ipratropium 0.5 mg-albutero l 3 mg (2.5 mg base)/3 mL nebulizatio n soln USE 3 ML VIA NEBULIZER FOUR TIMES DAILY active Not Available Not Available No t Available prednisone 20 mg tablet TAKE 1 TABLET BY MOUTH DAILY active Not Available Not Available No t Available prednisone 5 mg tablet Take 2 tablets once daily for 2 days, then take 1 tablet daily for 2 days. OFF. active Not Available Not Available No t Available amlodipine 5 mg tablet active Not Available Not Available Not Available tramadol 50 mg tablet TAKE 1 TO 2 TABLETS BY MOUTH EVERY 6 HOURS NEEDED FOR PAIN active Not Available Not Available No t Available levothyroxi ne 88 mcg tablet active Not Available Not Available Not Available famotidine 20 mg tablet Take 1 tablet twice a day by oral route. active Not Available Not Available No t Available pantoprazol e 40 mg tablet,jono yed release Take 1 tablet every day by oral route. active Not Available Not Available No t Available cyanocobala min (vit B-12) 1,[address] by sublingua l route. active Not Available Not Available No t Available Baby Aspirin 81 mg chewable tablet Chew 1 tablet every day by oral route. active Not Available Not Available No t Available metoprolol succinate ER 25 mg tablet,exte nded release 24 hr Take 1 tablet every day by oral route. active Not Available Not Available No t Available hydroxychlo roquine 200 mg tablet active Not Available Not Available No t Available levofloxaci n 500 mg tablet TAKE 1 TABLET BY MOUTH DAILY active Not Available Not Available No t Available albuterol sulfate HFA 90 mcg/actuati on aerosol inhaler INHALE 2 PUFFS INTO THE LUNGS EVERY 4-6 HOURS NEEDED active Not Available Not Available No t Available rosuvastati n 10 mg tablet Take 1 tablet every day by oral route. active Not Available Not Available No t Available rosuvastati n 40 mg tablet 04/14 completed Not Available Not Available Not Available bupropion HCl XL 150 mg 24 hr tablet, extended release TAKE 1 TABLET BY MOUTH EVERY DAY active Not Available Not Available No t Available levothyroxi ne 04/14 completed Not Available Not Available Not Available amlodipine 04/14 completed Not Available Not Available Not Available bupropion HCl 150 mg tablet,12 hr sustained-r elease(smok ing deterrent) Take 1 tablet twice a day by oral route. active Not Available Not Available No t Available Wixela Inhub 100 mcg-50 mcg/dose powder for inhalation Inhale 1 puff twice a day by inhalatio n route. active Not Available Not Available No t Available albuterol sulf 90 mcg/actuati on breath activated powder inhaler,sen sor Inhale 2 puffs every 4 hours by inhalatio n route. active Not Available Not Available No t Available Vitals Date Recorded Body height Body mass index (BMI) Body weight Systolic blood pressure Diastolic blood pressure Provider Name and Address Organization Details Last Updated DateTime 03/27/2024 167.64 cm 22.1 kg/m2 92791.85 g 120 mm[Hg] 62 mm[Hg] Abby Padgett [facility] 10:58:51 Date Recorded Body height Body mass index (BMI) Body weight Heart rate Oxygen saturation Oxygen saturation in Arterial blood by Pulse oximetry Pain severity - 0-10 verbal numeric rating [Score] - Reported Systolic blood pressure Diastolic blood pressure Provider Name and Address Organization Details Last Updated DateTime 167.64 cm 21.9 kg/m2 72477.4 1 g 80 /min 100 % 100 % 7 152 mm[Hg] 74 mm[Hg] Christine Gama [facility] 4 12:42:24 Social History Question Answer Notes LastModified by [employer] Details LastModified Time Tobacco Smoking Status Former Smoker Not Available Health Note 04/12/2024 12:53:16 Do You Have An Advance Directive? Yes [email or web address] Information not available 04/12/2024 What Is Your Level Of Alcohol Consumption? Occasional [email or web address] Information not available 04/12/2024 How Many Times Per Week Do You Consume Alcohol? 1-2 Times Per Week [email or web address] Information not available 04/12/2024 What Is Your Level Of Caffeine Consumption? Occasional [email or web address] Information not available 04/12/2024 What Is Your Code Status? DNR [email or web address] Information not available 04/12/2024 Are You Currently Employed? No [email or web address] Information not available 04/12/2024 What Is Your Occupation? Retired [email or web address] Information not available 04/12/2024 How Many Times Per Week Do You Exercise? 1-2 Times Per Week [email or web address] Information not available 04/12/2024 When Did You Quit Smoking? 2021 [email or web address] Information not available 04/12/2024 Do You Have A Medical Power Of Mental Tester? No [email or web address] Information not available 04/12/2024 What Was The Date Of Your Most Recent Tobacco Screening? 04/14/2024 [email or web address] Information not available 04/12/2024 What Is Your Relationship Status? [email or web address] Information not available 04/12/2024 Do You Use Any Illicit Or Recreational Drugs? No [email or web address] Information not available 04/12/2024 Sex: Unknown Functional Status Question Answer Note LastModified by Organizat ion Details LastModified Time What is your exercise level? Occasional [email or web address] Information not available 04/12/2024 Mental Status None recorded. Family History Relationship Description Onset Age of this Age Resolved Age Notes LastModified by Organization Details LastModified Time Mother Arthritis [email or web address] Not available 04/12/2024 12:53:14 Mother Diabetes mellitus [email or web address] Not available 2023 12:53:14 Mother Heart disease [email or web address] Not available 2023 12:53:14 Mother Hypertensive disorder [email or web address] Not available 2023 12:53:14 Mother Hypercholest erolemia [email or web address] Not available 2023 12:53:14 Mother Cerebrovascu lar accident [email or web address] Not available 12:53:14 Father Arthritis [email or web address] Not available 04/12/2024 12:53:14 Father Family history of malignant neoplasm [email or web address] Not available 2023 12:53:14 Father Chronic obstructive pulmonary disease [email or web address] Not available 2023 12:53:14 Father Heart disease [email or web address] Not available 2023 12:53:14 Father Hypertensive disorder [email or web address] Not available 2023 12:53:14 Father Hypercholest erolemia [email or web address] Not available 2023 12:53:14 Sister Arthritis [email or web address] Not available 04/12/2024 12:53:14 Sister Chronic obstructive pulmonary disease [email or web address] Not available 2023 12:53:14 Brother Arthritis [email or web address] Not availabl e 04/12/2024 12:53:14 Brother Diabetes mellitus [email or web address] Not available 2023 12:53:14 Brother Hypertensive disorder [email or web address] Not available 2023 12:53:14 Brother Hypercholest erolemia [email or web address] Not available 2023 12:53:14 Brother Cerebrovascu lar accident [email or web address] Not available 12:53:14 Daughter Arthritis [email or web address] Not availab le 04/12/2024 12:53:14 Daughter Chronic obstructive pulmonary disease [email or web address] Not available 2023 12:53:14 Daughter Heart disease [email or web address] Not available 2023 12:53:14 Daughter Hypertensive disorder [email or web address] Not available 2023 12:53:14 Daughter Hypercholest erolemia [email or web address] Not available 2023 12:53:14 Maternal Grandfather Family history of malignant neoplasm [email or web address] Not available 2023 12:53:14 Medical History Condition Response High Blood Pressure N COPD Y Depression N Anxiety Disorder N Arthritis Y Cancer N Stroke N Fibromyalgia N Kidney Disease N Bleeding Disorder N Asthma N Seizures N Attention-deficit Hyperactivity Disorder N Thyroid Problems Y Anemia N Diabetes N Hyperlipidemia N Heart Disease Y Osteoporosis Y Gynecological HistoryNo gynecological history recorded. Obstetrics History GPAL:G 0 P 0 0 0 0 Past Encounters Encounter ID Performer Location Encounter Start Date Encounter Closed Date Diagnosis/Indication Diagnosis SNOMED-CT Code Diagnosis ICD10 Code Diagnosis Note [id number] Franklin Trinh MD [address] ([place]) [address] [place] [address],[address] [place] [phone] 03/27/2024 10:41:14 03/27/2024 11:43:22 Lump on finger 400932474 R22.32 [id number] Magdy Lemus MD [address] Rhe[address]gy ([place]) [address] [place] [address],[address] [place] [phone] 04/14/2024 11:56:17 04/14/2024 18:21:59 Osteoarthritis 043851864 M19.90 Rheumatoid arthritis of multiple joints 187765690 M05.89 Additional diagnosis detail: Other rheumatoid arthritis with rheumatoid factor of multiple sites Long-term current use of drug therapy 735282092 Z79.899 Additional diagnosis detail: Other long-term (current) drug therapy [id number] MD [facility] Anesthesi [facility] ([place]) [address] [place] [phone] 04/19/2024 11:03:46 04/26/2024 15:35:18 [id number] Franklin Trinh MD [facility] Orthopedi cs ([place]) [address] [place] [address], [address] [place] [phone] 04/19/2024 11:03:48 04/25/2024 10:50:34 Lump on finger 532245688 R22.32 [id number] Franklin Trinh MD [address] [place] [address] Orthopedi ([place]) [address] [place] [phone] 05/02/2024 16:03:46 05/03/2024 09:10:39 History of musculoskeletal disease 900247713 Z87.39 Z47.89 Z98.890 Health Concerns Section Related Observation LastModified by Organization Detai ls LastModified Time None Recorded Concern Status LastModified by Organization Details LastModified Time None Recorded Advance Directives Directive Y: Payers Encounter Date Sequence Insurance Name Policy Number Policy Clay Covered Member ID Clay Member ID Guarantor Name 03/27/2024 1 [facility] (MEDICARE REPLACEMENT/A DVANTAGE - HMO) [id number] Mariana Stevie [id number] Mariana Stevie 04/14/2024 1 [facility] (MEDICARE REPLACEMENT/A DVANTAGE - HMO) [id number] Mariana Stevie [id number] Mariana Stevie 04/19/2024 1 [facility] (MEDICARE REPLACEMENT/A DVANTAGE - HMO) [id number] Mariana Stevie [id number] Mariana Stevie 04/19/2024 1 [facility] (MEDICARE REPLACEMENT/A DVANTAGE - HMO) [id number] Mariana Stevie [id number] Mariana Steive 05/02/2024 1 [facility] (MEDICARE REPLACEMENT/A DVANTAGE - HMO) [id number] Mariana Stevie [id number] Mariana Mast Notes Date Note Type Note Provider Name and Address Organization Details Recorded Time text/html Marly is seen today concerning a mass involving her left ring finger. She is 78 years old and right-hand dominant. The mass has been present for about 6 months and is over the radial aspect of the proximal interphalangeal joint. The mass can cause her some discomfort. She has had no injury nor trauma to this area. She has no complaints of numbness and tingling in the left hand. She has recently been diagnosed with rheumatoid arthritis and has been started on some medication for that and has an upcoming rheumatology evaluation scheduled. She has had some x-rays of her left hand. These were not available for review during her office visit. Franklin Trinh MD [address] [place] [address], [phone], [place] [facility] 04/02/2024 06:28:51 4 text/html The patient is a 78-year-old postmenopausal white female, previous smoker, with a history of coronary artery disease, GERD, hypertension, peripheral vascular disease, hyperlipidemia, celiac disease, hypothyroidism, COPD and idiopathic peripheral sensory neuropathy, who is seen today in consultation at the request of her primary care provider, Dr. Connell, regarding elevated rheumatoid factor in the setting of polyarthralgias, rule out RA. The patient states that for years she has battled aches and pains in her joints, especially her lower back, hips, and occasionally the knees. The hands at times would give her problems at the base of the thumbs and, in fact, she has seen Dr. Trinh in the past and underwent removal of a left ring finger ganglion. However, she notes that over the past 6 months, more so on the right versus the left hand and the right shoulder, she has been encountering impingement symptoms in the shoulder with limited range of motion, though she does have an underlying rotator cuff pathology that has been present for years. As regard to her hands, she has been noticing some stiffness lasting throughout the entire day, affecting the MCP and PIP joints of the hands, as well as right wrist. She has noticed swelling as well and some degree of warmth in the affected joints. 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 She rates the pain in the joints a 6-7/10 on a scale. Currently she is not experiencing any Raynaud s symptoms. She does not recall any prodromal illness prior to onset of her symptoms. No recent vaccines or upper respiratory gastrointestinal or pulmonary illnesses. In fact, she denies any rash or aphthous ulcers today. No inflammatory eye symptoms, sicca symptoms, neck swelling, lymph node swelling, cough, pleurisy, shortness of breath, chest pain or palpitations, GERD, melena or hematochezia, diarrhea or constipation. She did see her primary care provider on March 13, 2024, at which time Dr. Connell obtained x-rays of the hands and wrists demonstrating some osteoarthritic changes, but no evidence of erosions. No osteopenia. Her laboratory workup revealed a slightly diminished total white blood cell count of 3.5, with a normal hemoglobin and hematocrit and platelet counts, as well as urinalysis, B12 level, CPK level, CMP, JOSEPH screen, CCP screen and CRP. Her rheumatoid factor, however, was elevated at 24 IU/mL, prompting referral here to rheumatology clinic. Dr. Connell did initiate the patient on hydroxychloroquine approximately 2-3 weeks ago and the patient reports tolerating the medication well. She does see an head of it once a year. She has no visual complaints at this time. No photosensitivity, hyperpigmentation of the skin, myalgias or weakness. She, again, reports tolerating the oral DMARD agent quite well. Family history is noncontributory. I have reviewed the patient s past medical history and [employer] intake form.malick Hurd a 78 year oldfemalepresenting for care. Visit Reason:Hand Hand/Wrist Concerns: -Location: , involving the left thumb, index finger, middle finger, ring finger, pinky, involving the right thumb, index finger, middle finger, ring finger, pinky -Duration: approximately 10 month(s) -Pain onset/timing: gradual onset, present constantly, occurs at night, does not interrupt sleep -Severity of pain: current severity 02/22 -Quality of pain: aching, burning, electric/shooting, throbbing, tingling -Exacerbating factors: activity -Patient complains of: deformity, warmth, instability, limited ROM, erythema, swelling of surrounding area, tingling -Denies: ecchymosis, catching/locking, drainage, fevers, numbness, popping/clicking, wound/laceration of the affected area -Prior hand/wrist surgery: yes, described by patient as Unsure, done approximately 4 year(s) ago -Pain impacting ADLs: yes Treatments: -Seen by outside providers: no -Prior imaging/studies:X-ray-Pr ior imaging/studies location: [facility] -Previous treatments: medications -Prior medications: improved symptoms a little, including Hydroxychloroquine -Clinical trials participant: patient denies -Denies prior: acupuncture, chiropractic treatments, injections, occupational therapy, physical therapy, surgery -Prior injury/difficulty with affected area: yes -Concern origination: Home -Hand dominance: ambidextrous ROS: :Getting Up at Night to Pass UrineGeneral:WeaknessImm cris:Frequent SneezingENT:Ringing in the Ears, Runny NoseOphtho:NegativeCardi ac:NegativeRespiratory:S hortness of BreathGI:DiarrheaMusculo skeletal:Morning Stiffness, Muscle WeaknessSkin:NegativeNeu ro:NegativePsych:Difficu lty Staying AsleepEndo:NegativeHem:N egative Magdy Lemus MD [address] [place] [address], [phone], [facility] 04/18/2024 21:22:31 4 text/html [facility] PRE-ANESTHETIC EVALUATIONReported bypatient.Reason for Visit:PROPOSED PROCEDURE: EXCISION SUBCUTANEOUS MASS LEFT RING FINGER; SURGEON: Gayathri; PREOP DIAGNOSIS: Localized swelling, mass and lump, left upper limb- Review of Systems General:Exercise tolerance moderate; Denies SOB, BOO, PND; Denies chest pain or chest tightness Cardiac:Hypertension; Hyperlipidemia; CAD ,stable; with H/O PR; with coronary stents (2006) Vascular:PVD stable Pulmonary:Respiratory system at baseline; Current every day smoker GI:GERD ,controlled Musculoskeletal:Osteoart hritis; Rheumatoid arthritis Prior Anesthetic Complication:no history of anesthesia complications Family Anesthetic Hx:no history of anesthesia complications Physical Exam: AirwayMP II; Limited mouth opening TeethPartial upper; Poor dentition NeckFull range of motion CardiovascularRegular rate and rhythm RespiratoryNo wheeze noted; Dimished breath sounds bilaterally, but clear GastrointestinalNPO status >6 hrs solids, >2 hrs clear liquids Vital Signs:Vital signs reviewed. Please refer to nursing preop note for values Assessment:ASA PS: III Plan:MAC Discussion:I have discussed with the patient the anesthetic plan, alternatives, pertinent risks, and complications; including but not limited to PONV, dental injury, sore throat, PR, stroke, etc. All questions were answered. Patient verbalize(s) understanding and agree(s) to proceed. Grant Choi MD [address] [place] [address], [phone], [facility] 04/19/2024 12:47:26 4 text/html Mariana Hurd a 78 year oldfemalepresenting for care. MOSES SMITH PA-C [address] [facility], [place], [address], [facility] 05/04/2024 09:08:09 OBGyn Episode No OBEpisode recorded.
--- OUTSIDE RECORDS SUMMARY | 2024-12-09 21:16 | XMS_ITS | Clinical Summary ---
Author Organization [facility] Address [address] [place] [address] Care Team Providers Care Sweet Potato Disintegrator Name Role Phone Aarti Fraire MD Unavailable [phone] Aarti Fraire MD Primary Care Provider [phone] Allergies Active Allergy Reactions Criticality Noted Date Comments Cristo Inhibitors Other (See comments) Low 10/09/2017 Unsure of reaction. 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 Pulmonary nodules 06/10/2022 Surgical History Surgery Date Site/Laterality Comments CORONARY ANGIOPLASTY WITH ST ENT PLACEMENT COLONOSCOPY HYSTERECTOMY 08/16/1975 - 08/15/1976 APPENDECTOMY CARPAL TUNNEL RELEASE Bilateral ROTATOR CUFF REPAIR Right CATARACT EXTRACTION Bilateral GANGLION CYST EXCISION Right NECK SURGERY HM FIT COLON RECTAL CANCER SCREENING NASAL SEPTUM SURGERY THUMB SURGERY CARDIAC CATHETERIZATION Medical History Medical History Date Comments Polyneuropathy Hypothyroidism Vulvar cancer (HCC) Anxiety Coronary artery disease Mixed hyperlipidemia Essential hypertension Dysthymic disorder Peripheral vascular disease, unspecified COPD (chronic obstructive pulmonary disease) (HC C) GERD (gastroesophageal reflux disease) Bruit Diarrhea Arthritis Colon polyp Heart attack (HCC) Family History Medical History Relation Name Comments Cancer Father No Known Problems Mother Ulcerative colitis Sister Relation Name Status Comments Father Mother Sister Social History Tobacco Use Types Packs/Day Years [...] on file 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 Gender Identity Not on file Sexual Orientation Not on file 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 Not on file Not on file Obstetrics History Last Filed Vital Signs Vital Sign Reading [...] 06/15/2023 11:26 AM CDT Plan of Treatment Health Maintenance Due Date Last Done Comments Depression Screening 1945 Hepatitis C Screening 1945 Osteoporosis Screening-Bone Density Scan 1946 DTaP/Tdap/Td Vaccine (1 - Tdap) 1957 Hepatitis B Screening 1964 Lung Cancer Screening 1996 Well Visit 65+ 2011 Zoster Vaccine (2 of 3) 01/25/2014 11/30/2013 Pneumococcal vaccine 65+ (2 of 2 - PCV) 05/14/2023 05/14/2022 Covid-19 Vaccine (4 - 2023-2 5 season) 2024 07/16/2021, 11/11/2020, 10/14/2020 Influenza Vaccine (#1) 2024 , 05/25/2019, 05/13/2018, Additional history exists Fall Risk Assessment 06/15/2024 06/15/2023 Insurance [facility] Address: [address] [address] [place] [address] [facility] Address: [address] [address] [place] [address] Care Teams Sweet Potato Disintegrator Relationship Specialty Start Date End Date Aarti Fraire MD [address] [place] [address] PCP - General Internal Medicine 06/02/22 Aarti Fraire MD [address] [place] [address] Referring Physician Internal Medicine 06/02/22
--- OUTSIDE RECORDS SUMMARY | 2024-12-09 21:16 | XMS_ITS | Clinical Summary ---
Author Organization [facility] Address [address] 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 Gender Identity Not on file Sexual Orientation Not on file Last Filed Vital Signs Vital Sign Reading Time Taken Comments Blood Pressure 112/62 04/06/2017 9:18 AM CDT Pulse - - Temperature - - Respiratory Rate - - Oxygen Saturation - - Inhaled Oxygen Concentration - - Weight 68 kg (150 lb) 04/06/2017 9:18 AM CDT Height 170.2 cm (5' 7 ) 04/06/2017 9:18 AM CDT Body Mass Index 23.49 04/06/2017 9:18 AM CDT Plan of Treatment Health Maintenance Due Date Last Done Comments DTAP/TDAP/TD VACCINES (1 - Tdap) 1965 PNEUMOCOCCAL VACCINE 50+ YEARS (1 of 1 - PCV) 04/29/19 96 ZOSTER VACCINE (1 of 2) 1996 OSTEOPOROSIS SCREENING 2011 RSV VACCINE (60+ or ) (1 - 1-dose 75+ series) 2021 INFLUENZA VACCINE (#1) 2024 Care Teams Knitting Machine Operator Helper Relationship Specialty Start Date End Date Chucky Terry MD [address] [place] [address] PCP - General Internal Medicine 04/06/17
[2024-12-09 21:17] VITALS: BP 165/78; PULSE 61; RESP 18; TEMP 36.9; O2SAT 96
--- NOTE | 2024-12-09 21:34 | ED.UPPEXIN ---
HPI - Extremity Injury (Upper) General Chief Complaint: Extremity Injury, Upper Stated Complaint: fall Time Seen by Provider: 12/09/24 21:17 Source: patient Mode of arrival: ambulatory Limitations: no limitations History of Present Illness HPI narrative: this is a 79-year-old female who presents after she had a fall where she missed a step and fell on her knee and right hand and wrist causing avulsion to the anterior surface of her right knee and injury to her right wrist and hand. Has good range of motion although tender and limited secondary to pain has a good brisk radial pulse on the right. No other injuries noted. complaint: injury to: right Onset (ago): hour(s) Other Extremity Injury: Right: hand ( tenderness to movement palpation) and wrist ( tenderness to movement palpation) Place: other Severity: moderate Severity scale (1-10): 5 Relieving factors: immobilization Exacerbating factors: movement of extremity Context: fall Associated symptoms: denies other symptoms Related Data Home Medications ?Medication ?Instructions ?Recorded ?Confirmed ?Last Taken ?Type amlodipine 5 mg tablet 5 mg PO DAILY 10/24/22 07/20/24 Unknown History aspirin 81 mg tablet,delayed 81 mg PO DAILY 10/24/22 07/20/24 06/23/23 History release bupropion HCl 150 mg 24 hr tablet, 150 mg PO DAILY 10/24/22 07/20/24 06/23/23 History extended release famotidine 20 mg tablet 20 mg PO DAILY 10/24/22 07/20/24 06/23/23 History levothyroxine 75 mcg tablet 88 mcg PO DAILY 10/24/22 07/20/24 06/23/23 History metoprolol succ 25 1 tablet PO DAILY 10/24/22 07/20/24 06/23/23 History mg-hydrochlorothiazide 12.5 mg tablet,ext.rel 24 hr pantoprazole 40 mg tablet,delayed 40 mg PO DAILY 10/24/22 07/20/24 06/23/23 History release rosuvastatin 20 mg tablet 10 mg PO DAILY 10/24/22 07/20/24 06/23/23 History sertraline 50 mg tablet 25 mg PO DAILY 10/24/22 07/20/24 06/23/23 History B12 1 tablet PO DAILY 06/14/23 07/20/24 Unknown History Allergies Allergy/AdvReac Type Severity Reaction Status Date / Time GERRY Inhibitors Allergy Unknown Verified 12/09/24 21:35 clindamycin Allergy Unknown Verified 12/09/24 21:35 codeine Allergy Unknown Verified 12/09/24 21:35 cyclobenzaprine Allergy Unknown Verified 12/09/24 21:35 hydrocodone Allergy Vomiting Verified 12/09/24 21:35 lisinopril Allergy Unknown Verified 12/09/24 21:35 Penicillins Allergy Unknown Verified 12/09/24 21:35 Sulfa (Sulfonamide Allergy Unknown Verified 12/09/24 21:35 Antibiotics) Review of Systems Review of Systems: All systems reviewed & are unremarkable except as noted in HPI and below PMFSH Past Medical History Medical History History of uterine cancer CAD (coronary artery disease) HLD (hyperlipidemia) Hypothyroidism HTN (hypertension) COPD (chronic obstructive pulmonary disease) Surgical History Surgical History History of coronary artery stent placement - 2006 Social History Social History Smoking packs per day: 1 Smoking cigarettes per day: 20.0 Years smoked: 25 Smoking pack-years: 25.00 Smoking status: Former smoker Tobacco type: cigarettes Alcohol intake: current Drinks per week: 1 Substance use: current Substance use type: prescription drug Lack of Transportation: No Lack of Food: Never True Current Housing: I Have Housing Concerned About Future Housing: No Difficulty Paying Gas/Electric Bills: No Difficulty Paying for Meds: No Currently Unemployed: No Education: Bachelor's Degree Difficulty w/ Childcare or Family Care: No Living arrangements: alone Spiritual care concerns: No Exam Const: General: healthy appearing and no acute distress Nutritional Appearance: well nourished Orientation/consciousness: patient oriented x3 Limitations: no limitations Chest: Chest palpation & inspection: normal inspection of the chest Resp: Effort & Inspection: normal respiratory effort Auscultation: clear to auscultation bilaterally Cardio: Rate: regular rate Rhythm: regular rhythm GI: GI Palp: Yes Soft to palpation Back/Spine/Pelvis: Back: no CVA tenderness Skin: Wounds: wounds noted Other: Abrasions and avulsion injury to anterior knee and on the right and right hand. Neuro: General: patient oriented x3, moves all extremities and no meningeal signs Cranial nerves: Yes Nystagmus not present Speech: normal speech Extrem: General: normal to inspection Course Course Emergency Course: Triple antibiotic ointment applied to abrasions, Tylenol 650mg p.o. given and x-rays performed and reviewed with patient. Vital Signs Vital signs: Vital Signs Temperature 36.9 C 12/09/24 21:17 Pulse Rate 61 12/09/24 21:17 Respiratory Rate 18 12/09/24 21:17 Blood Pressure 165/78 H 12/09/24 21:17 Pulse Oximetry 96 12/09/24 21:17 Oxygen Delivery Room Air 12/09/24 21:17 Temperature 36.9 C 12/09/24 21:17 Pulse Rate 61 12/09/24 21:17 Respiratory Rate 18 12/09/24 21:17 Blood Pressure 165/78 H 12/09/24 21:17 Pulse Oximetry 96 12/09/24 21:17 Oxygen Delivery Room Air 12/09/24 21:17 Critical Care Time Critical Care Time Critical Care Time: No Discharge Plan Discharge Clinical Impression: Sprain of wrist, right Qualifiers: Encounter type: initial encounter Qualified Code(s): S63.501A - Unspecified sprain of right wrist, initial encounter Patient Disposition: Home Condition: Stable Instructions: Antibiotic Form, Wrist Sprain (ED) Additional Instructions: advised to take Tylenol as needed and follow up with primary if symptoms persist or worsen. Patient Language: [place] Prescriptions: No Action amlodipine 5 mg tablet 5 mg PO DAILY aspirin 81 mg Tablet,Delayed Release (Dr/Ec) 81 mg PO DAILY levothyroxine 75 mcg tablet 88 mcg PO DAILY famotidine 20 mg tablet 20 mg PO DAILY pantoprazole 40 mg tablet,delayed release (DR/EC) 40 mg PO DAILY sertraline 50 mg tablet 25 mg PO DAILY rosuvastatin 20 mg tablet 10 mg PO DAILY bupropion HCl 150 mg tablet extended release 24 hr 150 mg PO DAILY metoprolol ponce-hydrochlorothiaz 25-12.5 mg Tablet Extended Release 24 Hr 1 tablet PO DAILY albuterol sulfate [Proventil HFA] 90 mcg/actuation Hfa Aerosol Inhaler 2 puff inhalation QIDRT PRN (Reason: Shortness Of Breath) Qty: 1 0RF ipratropium-albuterol 0.5 mg-3 mg(2.5 mg base)/3 mL Solution For Nebulization 3 ml inhalation Q6HRT Qty: 180 0RF fluticasone propion-salmeterol [Advair Diskus] 100-50 mcg/dose Blister With Device 1 ea inhalation Q12HRT Qty: 1 1RF (DME) nebulizers Misc See Rx Instructions .Route Qty: 1 0RF Rx Instructions: As directed levofloxacin 500 mg tablet 500 mg PO DAILY Qty: 6 0RF prednisone 20 mg tablet 20 mg PO DAILY Qty: 5 0RF B12 1 tablet PO DAILY Follow-up/Referrals: Aarti Fraire MD [Primary Care Provider] - Time of Disposition: 21:53
[2024-12-09] MEDS: ACETAMINOPHEN 325 MG TABLET 650 MG PO (21:37)
[2024-12-09] MEDS: NEOMYCIN/POLYMYXIN/BACITRACIN OINTMENT PACKET 1 PACKET TOPICAL (21:43)
== END 2024-12-09 22:00 | disposition home or self-care (01) ==
PROVIDERS: Emergency Provider Emergency Medicine; PCP Internal Medicine
DX: S63.501A Unspecified sprain of right wrist, initial encounter (principal); S80.211A Abrasion, right knee, initial encounter; S60.511A Abrasion of right hand, initial encounter; I25.10 Atherosclerotic heart disease of native coronary artery without angina pectoris; E78.5 Hyperlipidemia, unspecified; E03.9 Hypothyroidism, unspecified; I10 Essential (primary) hypertension; J44.9 Chronic obstructive pulmonary disease, unspecified; Z87.891 Personal history of nicotine dependence; W10.9XXA Fall (on) (from) unspecified stairs and steps, initial encounter
CPT/HCPCS: 73110; 73130; 99283; A9270

== ENCOUNTER 2024-12-14 14:52 | Outpatient (CLI) | payer MEDICARE, SELFPAY ==
--- NOTE | ~2024-12-14 | XR_ITS ---
XR knee LT 3V Ordering provider: Aarti Fraire MD History: . LEFT KNEE INJURY - FALL 1 week ago . Comparison: None. FINDINGS: BONES: No acute fracture or dislocation. JOINT SPACES: Narrowing of the medial compartment. SOFT TISSUES: Normal. IMPRESSION: No acute osseous abnormality left knee. Severe osteoarthritic changes. Reviewed, dictated and finalized at location A.
--- OUTSIDE RECORDS SUMMARY | 2024-12-14 15:27 | XMS_ITS | Clinical Summary ---
Author Organization [employer] [facility] Address [address] 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
--- OUTSIDE RECORDS SUMMARY | 2024-12-14 15:28 | XMS_ITS | Clinical Summary ---
Author Organization [facility] Address [address] [place] [address] Care Team Providers Care Kettle Skimmer Name Role Phone Aarti Fraire MD Unavailable [phone] Aarti Fraire MD Primary Care Provider [phone] Allergies Active Allergy Reactions Criticality Noted Date Comments Cristo Inhibitors Other (See comments) Low 10/09/2017 Unsure of reaction. 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
--- OUTSIDE RECORDS SUMMARY | 2024-12-14 15:28 | XMS_ITS | Referral Summary ---
Author Organization [facility] Address [address] [place] [address] Care Team Providers Care Reimbursement Specialist Name Role Phone Aarti Fraire MD Unavailable [phone] Aarti Fraire MD Primary Care Provider [phone] Allergies Active Allergy Reactions Criticality Noted Date Comments Cristo Inhibitors Other (See comments) Low 10/09/2017 Unsure of reaction. 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
--- OUTSIDE RECORDS SUMMARY | 2024-12-14 15:28 | XMS_ITS | Data Portability ---
Author Organization [facility], [address] [place] [address] Neurology ([place]) Address [address] [place] [address] Care Team Providers Care Tree Faller Name Role Phone WINSTON CONNELL Primary Care Provider WINSTON CONNELL Referring Provider Assessment Encounter Date [...] and reviewed during the office visit. [facility] Not available 03/29/2024 06:50:32 04/14/2024 04/14/2024 [...] Followup visit in 4-1/2 months at my [facility]. Today I had a lengthy discussion with the patient regarding the diagnosis, my clinical impressions, the potential pharmacotherapies and I answered and addressed all of her questions and concerns in detail. I personally spent a total of 60 minutes on the patient on this date of service including both hzde-tu-gftt and wqd-mktw-cm-face time excluding any separately reportable services. malick [email or web address] Not available 04/18/2024 11:15:46 04/19/2024 04/19/2024 The [...] Orders tramadol 50 mg tablet 2023 024 [id number], [address], [place], [id number], 04/19/2024 14:32:34 Patient TargetsNo targets recorded. Patient InstructionsNo instructions recorded. Reason for Referral None Reported. Results Created Date Observation Date Name Description Value Unit Range Abnormal Flag Note LastModifiedBy Organization Detail LastModifiedTime 04/19/20 24 04/24/2024 surgi walker patho logy study tissue exam biopsy [facility] [address],[place] [address] Ph. Chucky Mcclain MD, PhD, Medic al [facility] FRANKLIN AKINS MD nt: ROSCOE MATS HY Sampl e ID: [id number] Repor t Statu s: Final :0 1944 Case #: [id number] Age: 78 Y Gende r: F Date Colle cted: 04/19 MRN # : [id number] Date Recei lorene: 04/19 Repor rakesh Date: 04/24 FINAL DIAGN OSIS: Skin, left ring finge r, excis ion: - Gangl ion cyst Elect asher templeton Vershaila ied by Ryao Farmer MD Elect asher messina 04/24 09:57 [...] 0.7 x 0.4 [facility]. The speci men is jennifer barkerr china submi tted for histo logic study in one casse tte. [facility] MAT[facility] N: Skin biops y, left ring finge r, local ized swell ing, mass and lump. Not Available Sc Only - [facility] [address] [place] [address], [address], 04/24/2024 11:00:13 Result Notes None recorded. Problems Name Problem SNOMED Code Status Onset Date Resolution Date Notes Provider Name and Address Organization Details Recorded Time Hyperlipidemia 02899445 Active 2023 [facility] 4 11:26:12 Hypertensive disorder 04849804 Active 2023 [facility] 4 11:26:22 Peripheral vascular disease 812117979 Active 2023 [facility] 4 11:26:31 Gastroesophage al reflux disease 268056970 Active 2023 [facility] 4 11:26:42 Celiac disease 489466403 Active 2023 [facility] 4 11:26:57 History of malignant neoplasm of vulva 003573493 Active 2023 [facility] 4 11:27:11 Lump on finger 314987092 Active 2023 [facility] 4 12:02:01 Lump on finger 849696876 Active 2023 [facility] 4 12:02:25 Seropositive rheumatoid arthritis 656887514 Active 2023 Darryl Apple [facility] 4 16:36:21 Osteoarthritis 294578943 Active 2023 Magdy Lemus MD [address] [place] [address], [phone], [facility] 4 13:20:29 Problem Notes None recorded. Procedures Surgical History Date Name Laterality Status Provider Name and Address Organization Details Recorded Time 04/19/20 24 [place] Operative Report completed Franklin Trinh MD [address] [place] [address], [phone], [facility] 04/20/2024 05:36:07 04/19/20 24 excision of mucous cyst of finger completed [facility] 04/25/2024 17:26:11 placement of stent in cardiac conduit completed [facility] 03/27/2024 11:23:39 Appendectomy completed [facility] 03/27/2024 11:23:46 hysterectomy completed [facility] 03/27/2024 11:23:55 Carpal tunnel surgery completed [facility] 03/27/2024 11:24:10 Yvette arthrs srg rt8tr cuf rpr completed [facility] 03/27/2024 11:24:16 bilateral cataract surgery completed [facility] 03/27/2024 11:24:29 surgical procedure on cervical spine completed [facility] 03/27/2024 11:24:37 operation on vulva completed [facility] 03/27/2024 11:25:13 operation on rectum completed [facility] 03/27/2024 11:25:30 Prq card stent w/angio 1 [...] Name and Address Organization Details Recorded Time 6515418 Product containin g penicilli n (product) medicatio n swelling severe high 04/19/2024 91280 8001 SNOMED Sheron Stretch [facility] 4 11:49:04 5468399 Substance with sulfonami de structure and antibacte rial mechanism of action (substanc e) medicatio n headache mild low 04/19/2024 83742 8003 SNOMED Sheron Stretch [facility] 4 11:49:31 3299152 hydrocodo ne Not available vomiting moderate low 04/19/2024 5489 RxNorm Sheron Stretch [facility] 4 11:49:46 6036127 codeine medicatio n vomiting moderate low 04/19/2024 2670 RxNorm Sheron Stretch [facility] 4 11:50:05 2594797 Voltaren medicatio n Not available Not available unabletoasse ss 04/19/2024 33456 6 RxNorm Sheron Stretch [facility] 4 11:50:49 Medications Name Sig Start Date Stop Date [...] Updated DateTime 03/27/2024 167.64 cm 22.1 kg/m2 39616.85 g 120 mm[Hg] 62 mm[Hg] Abby Padgett [facility] 4 10:58:51 Date Recorded Body height Body mass index (BMI) Body weight Heart rate Oxygen saturation Oxygen saturation in Arterial blood by Pulse oximetry Pain severity - 0-10 verbal numeric rating [Score] - Reported Systolic blood pressure Diastolic blood pressure Provider Name and Address Organization Details Last Updated DateTime 167.64 cm 21.9 kg/m2 30779.4 1 g 80 /min 100 % 100 % 7 152 mm[Hg] 74 mm[Hg] Christine Gama [facility] 12:42:24 Social History Question Answer Notes LastModified by Organizat ion Details LastModified Time Tobacco Smoking Status Former [...] Do You Have A Medical Power Of Soft Boarder? No [email or web address] Information not available 04/12/2024 What [...] available 2023 12:53:14 Medical History Condition Response Diabetes N Anxiety Disorder N Bleeding Disorder N Attention-deficit Hyperactivity Disorder N High Blood Pressure N Arthritis Y Hyperlipidemia N Cancer N Stroke N Thyroid Problems Y Asthma N Depression N COPD Y Anemia N Seizures N Heart Disease Y Fibromyalgia N Osteoporosis Y Kidney Disease N Gynecological HistoryNo gynecological history recorded. Obstetrics History GPAL:G 0 P 0 0 0 0 Past Encounters Encounter ID Performer Location Encounter Start Date Encounter Closed Date Diagnosis/Indication Diagnosis SNOMED-CT Code Diagnosis ICD10 Code Diagnosis Note [id number] Franklin Trinh MD [address] [facility] ([place]) [address] [place] [address],[address] [address] 03/27/2024 10:41:14 03/27/2024 11:43:22 Lump on finger 275843299 R22.32 [id number] Magdy Lemus MD [address] Rhe[address]gy ([place]) [address] [place] [address],[address] [address] 04/14/2024 11:56:17 04/14/2024 18:21:59 Osteoarthritis 894204759 M19.90 Rheumatoid arthritis of multiple joints 417511052 M05.89 Additional diagnosis detail: Other rheumatoid arthritis with rheumatoid factor of multiple sites Long-term current use of drug therapy 129109696 Z79.899 Additional diagnosis detail: Other custodial (current) drug therapy [id number] Immanuel Choi MD [facility] [place] Anesthesi a ([place]) [address] [place] [address] 04/19/2024 11:03:46 04/26/2024 15:35:18 [id number] Franklin Trinh MD [facility] Orthopedi cs ([place]) [address] [facility], 2nd [address] [facility] [place] [address] 04/19/2024 11:03:48 04/25/2024 10:50:34 Lump on finger 792570368 R22.32 [id number] MOSES SMITH PA-C [address] ([place]) [address] [facility] [place] [address] 05/02/2024 16:03:46 05/03/2024 09:10:39 History of musculoskeletal disease 745578513 Z87.39 Z47.89 Z98.890 Health Concerns Section Related Observation LastModified by Organization Detai ls LastModified Time None Recorded Concern Status LastModified by Organization Details LastModified Time None Recorded Advance Directives Directive Y: Payers Encounter Date Sequence Insurance Name Policy Number Policy Clay Covered Member ID Clay Member ID Guarantor Name 03/27/2024 1 [facility] (MEDICARE REPLACEMENT/A DVANTAGE - HMO) [id number] Mariana Mast [id number] Mariana Mast 04/14/2024 1 [facility] (MEDICARE REPLACEMENT/A DVANTAGE - HMO) [id number] Mariana Mast [id number] Mariana Mast 04/19/2024 1 [facility] (MEDICARE REPLACEMENT/A DVANTAGE - HMO) [id number] Mariana Mast [id number] Mariana Mast 04/19/2024 1 [facility] (MEDICARE REPLACEMENT/A DVANTAGE - HMO) [id number] Mariana Mast [id number] Mariana Mast 05/02/2024 1 [facility] (MEDICARE REPLACEMENT/A DVANTAGE - HMO) [id number] Mariana Mast [id number] Mariana Mast Notes Date Note Type Note [...] during her office visit. Franklin Trinh MD [facility] [address], [address], [facility] 04/02/2024 06:28:51 4 text/html The patient is [...] the affected joints. 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 She does see an inspector insulation once a year. She has no visual complaints at this time. No photosensitivity, hyperpigmentation of the skin, myalgias or weakness. She, again, reports tolerating the oral DMARD agent quite well. Family history is noncontributory. I have reviewed the patient s past medical history and [employer] intake form.malick Hurd a [...] providers: no -Prior imaging/studies:X-ray-Pr ior imaging/studies location: [facility] -Previous treatments: medications -Prior medications: improved [...] AsleepEndo:NegativeHem:N egative Magdy Lemus MD [address] [place] [address], [phone], [facility] 04/18/2024 21:22:31 4 text/html [facility] PRE-ANESTHETIC EVALUATIONReported bypatient.Reason for Visit:PROPOSED PROCEDURE: EXCISION SUBCUTANEOUS MASS LEFT RING FINGER; SURGEON: Gayathri; PREOP DIAGNOSIS: Localized swelling, mass and lump, left upper limb- Review of Systems General:Exercise tolerance moderate; Denies SOB, BOO, PND; Denies chest pain or chest tightness Cardiac:Hypertension; Hyperlipidemia; CAD ,stable; with H/O SD; with coronary stents (2006) Vascular:PVD stable Pulmonary:Respiratory [...] limited to PONV, dental injury, sore throat, SD, stroke, etc. All questions were answered. Patient verbalize(s) understanding and agree(s) to proceed. Grant Choi MD [address] [place] [address], [phone], [facility] 04/19/2024 12:47:26 4 text/html Mariana Hurd a 78 year oldfemalepresenting for care. MOSES SMITH PA-C [address] [place] [address], [phone], [facility] 05/04/2024 09:08:09 OBGyn Episode No OBEpisode recorded.
== END 2024-12-14 14:53 | disposition home or self-care (01) ==
PROVIDERS: PCP Internal Medicine; Visit Provider Internal Medicine
DX: S89.92XA Unspecified injury of left lower leg, initial encounter (principal); M17.12 Unilateral primary osteoarthritis, left knee
CPT/HCPCS: 73562

== ENCOUNTER 2025-04-03 11:13 | Outpatient (CLI) | payer MEDICARE, SELFPAY ==
--- NOTE | ~2025-04-03 | XR_ITS ---
EXAM/ PROCEDURE: XR finger 1st RT min 2V - 04/03/2025 11:30 CDT HISTORY: 79 years old Female with Right thumb injury in a car door COMPARISON: None available TECHNIQUE: Three view(s) FINDINGS/ IMPRESSION: There are no fractures or dislocations.Joint space narrowing, subchondral sclerosis, subchondral cyst formation and osteophyte formation, compatible with moderate osteoarthritis. Reviewed, dictated and finalized at location A.
--- OUTSIDE RECORDS SUMMARY | 2025-04-03 11:48 | XMS_ITS | Clinical Summary ---
Author Organization [facility] Address [address] 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 Gender Identity Not on file Sexual Orientation Not on file Last Filed Vital Signs Vital Sign Reading Time Taken Comments Blood Pressure 112/62 04/06/2017 9:18 AM CDT Pulse - - Temperature - - Respiratory Rate - - Oxygen Saturation - - Inhaled Oxygen Concentration - - Weight 68 kg (150 lb) 04/06/2017 9:18 AM CDT Height 170.2 cm (5' 7) 04/06/2017 9:18 AM CDT Body Mass Index 23.49 04/06/2017 9:18 AM CDT Plan of Treatment Health Maintenance Due Date Last Done Comments DTAP/TDAP/TD VACCINES (1 - Tdap) 1965 PNEUMOCOCCAL VACCINE 50+ YEARS (1 of 1 - PCV) 04/29/19 96 ZOSTER VACCINE (1 of 2) 1996 OSTEOPOROSIS SCREENING 2011 RSV VACCINE (60+ or ) (1 - 1-dose 75+ series) 2021 INFLUENZA VACCINE (#1) 2025 Care Teams Manager Quality Relationship Specialty Start Date End Date Chucky Terry MD [address] [place] [address] PCP - General Internal Medicine 04/06/17
--- OUTSIDE RECORDS SUMMARY | 2025-04-03 11:48 | XMS_ITS | Clinical Summary ---
Author Organization [facility] Address [address] [place] [address] Care Team Providers Care Network Engineer Name Role Phone Aarti Fraire MD Unavailable [phone] Aarti Fraire MD Primary Care Provider [phone] Allergies Active Allergy Reactions Criticality Noted Date Comments Cristo Inhibitors Other (See comments) Low 10/09/2017 Unsure of reaction. 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 Not on file Not [...] 11:26 AM CDT Height 167.6 cm (5' 6) 06/15/2023 11:26 AM CDT Body Mass Index [...] 2023-2 5 season) 2024 07/16/2021, 11/11/2020, 10/14/2020 Fall Risk Assessment 06/15/2024 06/15/2023 Influenza Vaccine (#1) 2025 , 05/25/2019, 05/13/2018, Additional history exists Insurance [facility] AD[facility] Address: [address] [address] [place] [address] [facility] MEDIC[facility] Address: [address] [address] [place] [address] Care Teams Network Engineer Relationship Specialty Start Date End Date Aarti Fraire MD [address] [place] [address] PCP - General Internal Medicine 06/02/22 Aarti Fraire MD [address] [place] [address] Referring Physician Internal Medicine 06/02/22
== END 2025-04-03 11:14 | disposition home or self-care (01) ==
LOC: CHSIMG 11:15
PROVIDERS: PCP Internal Medicine; Visit Provider Nurse Practitioner Family
DX: S69.91XA Unspecified injury of right wrist, hand and finger(s), initial encounter (principal)
CPT/HCPCS: 73140

== ENCOUNTER 2025-06-14 12:37 | Outpatient (CLI) | payer MEDICARE, SELFPAY ==
--- NOTE | ~2025-06-14 | US_ITS ---
Clinical History: SCREENING/OSTEOPOROSIS/CAROTID STENOSIS Examination: US carotid duplex BI Comparison: None Technique: Grayscale, color, duplex/spectral Doppler sonography carotid and vertebral arteries. Distal CCA and Peak ICA systolic velocities provided. Society of Radiologists in Ultrasound (SRU) consensus criteria utilized, indirectly assessing stenosis by velocities. Findings: Scattered plaque Right side: CCA - 61 cm/sec. ICA - 103 cm/sec. ICA/CCA - 1.7 Left Side: CCA - 71 cm/sec. ICA - 75 cm/sec. ICA/CCA - 1.1 Normal antegrade flow measured bilateral vertebral arteries. IMPRESSION: 1. No hemodynamically significant ICA stenosis (i.e., if any stenosis, less than 50%). 2. Normal bilateral antegrade vertebral artery flow. Stenosis measured by Society of Radiologists in Ultrasound (SRU) criteria. Reviewed, dictated and finalized at location R. IMPRESSION: 1. No hemodynamically significant ICA stenosis (i.e., if any stenosis, less th an 50%). 2. Normal bilateral antegrade vertebral artery flow. Stenosis measured by Society of Radiologists in Ultrasound (SRU) criteria.
--- NOTE | ~2025-06-14 | CT_ITS ---
CT diagnostic chest wo con HISTORY:SCREENING/OSTEOPOROSIS/CAROTID STENOSIS COMPARISON: None. TECHNIQUE: Axial images of the chest were obtained without infusion of intravenous contrast. Dose optimization technique was utilized. FINDINGS: The examination demonstrates no pulmonary nodules, infiltrates and/or effusions. There are moderate centrilobular emphysema within the upper lobes bilaterally apical scarring are noted at the lung apices. Cardiac size and mediastinal configuration are normal in appearance. Enlarged precarinal lymph node measures 1.3 cm in short axis dimension. Within normal limits of this nondedicated CT there are coronary artery calcification. The thoracic aorta is normal in caliber. Osseous structures are intact. IMPRESSION: No acute cardiopulmonary process. Centrilobular emphysema and biapical scarring. All CT scans at this facility are performed using low dose modulation techniques as appropriate to perform exam including the following: automated exposure control; use of iterative reconstruction technique; adjustment of the mA and/or kV according to patient size (this includes techniques or standardized protocols for targeted exams where dose is matched to indication/reason for exam). Reviewed, dictated and finalized at location S. IMPRESSION: No acute cardiopulmonary process. Centrilobular emphysema and biapical scarring. All CT scans at this facility are performed using low dose modulation techniqu es as appropriate to perform exam including the following: automated exposure c ontrol; use of iterative reconstruction technique; adjustment of the mA and/or kV according to patient size (this includes techniques or standardized protocol s for targeted exams where dose is matched to indication/reason for exam).
--- OUTSIDE RECORDS SUMMARY | 2025-06-14 13:13 | XMS_ITS | Clinical Summary ---
Author Organization [facility] Address [address] [place] [address] Care Team Providers Care Cement Mixer Name Role Phone Aarti Fraire MD Unavailable [phone] Aarti Fraire MD Primary Care Provider [phone] Allergies Active Allergy Reactions Criticality Noted Date Comments Cristo Inhibitors Other (See comments) Low 10/09/2017 Unsure of reaction. 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
--- OUTSIDE RECORDS SUMMARY | 2025-06-14 13:13 | XMS_ITS | Clinical Summary ---
Author Organization [employer] [facility] Address [address] 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
== END 2025-06-14 12:38 | disposition home or self-care (01) ==
LOC: CHSIMG 12:40
PROVIDERS: PCP Internal Medicine; Visit Provider Internal Medicine
DX: J44.9 Chronic obstructive pulmonary disease, unspecified (principal); J43.2 Centrilobular emphysema; J98.4 Other disorders of lung; I65.29 Occlusion and stenosis of unspecified carotid artery; Z13.6 Encounter for screening for cardiovascular disorders; Z13.820 Encounter for screening for osteoporosis
CPT/HCPCS: 71250; 93880

== ENCOUNTER 2025-07-25 13:23 | Outpatient (CLI) | payer MEDICARE, SELFPAY ==
--- NOTE | ~2025-07-25 | MM_ITS ---
EXAMINATION: MM screening diana BI w zeke HISTORY: Screening. TECHNIQUE: Craniocaudal and mediolateral oblique 3-D tomosynthesis images were obtained and synthetic 2-D images were generated. CAD analysis was submitted and interpreted. COMPARISON: 2023 and 2021 BREAST PARENCHYMAL COMPOSITION: Dense: The breasts are heterogeneously dense FINDINGS: There are multiple, bilateral, circumscribed nodules/masses, a benign finding. No suspicious masses are seen. There are no suspicious calcifications. No unexplained architectural distortion is seen. There are no skin or nipple abnormalities identified. There is no adenopathy seen on the images submitted. IMPRESSION: No mammographic evidence to suggest malignancy is seen. The patient may return to screening mammography as per ACR guidelines. BI-RADS 2 - Benign. Reviewed, dictated and finalized at location C. E FINISHER
--- NOTE | ~2025-07-25 | DEXA_ITS ---
Bone Density Report Name: BALDEMAR MAST Age: 80 Sex: Female Ethnicity: White Date of : 1945 Indication: postmenopausal; screening for osteoporosis; height loss; prior fracture; cancer; asthma or emphysema; hysterectomy; rheumatoid arthritis; secondary osteoporosis; Referring Provider: Aarti Fraire Study: Bone densitometry was performed. Exam Date: July 25, 2025 Accession number: [id number] Bone Density: Region BMD T-score Z-score Classification AP Spine(L1-L4) 1.021 -0.2 2.4 Normal Femoral Neck (Left) 0.504 -3.1 -0.8 Osteoporosis Total Hip (Left) 0.657 -2.3 -0.3 Osteopenia Femoral Neck (Right) 0.576 -2.5 -0.2 Osteoporosis Total Hip (Right) 0.723 -1.8 0.2 Osteopenia Femoral Neck Mean 0.540 -2.8 -0.5 Osteoporosis Total Hip Mean 0.690 -2.1 -0.1 Osteopenia World Health Organization criteria for BMD impression classify patients as: Normal (T-score at or above -1.0), Osteopenia (T-score between -1.0 and -2.5), or Osteoporosis (T-score at or below -2.5). 10-year Fracture Risk: FRAX not reported because: Some T-score for Spine Total or Hip Total or Femoral Neck at or below -2.5 Clinical Information Provided by Patient: Has had a low trauma fracture Smokes Has rheumatoid arthritis Has secondary osteoporosis Has the following medical conditions: Asthma or Emphysema, Cancer, Hysterectomy Patient maximum height was 67 Menopause Age: 31 No regular weight bearing exercise Drinks caffeinated beverages Onset of menses at age 10 Number of children 2 Impression: The patient has established osteoporosis, based on the Left Femoral Neck T-score and the existence of a prior fracture. The patient has risk factors, including: smoking, previous fracture. Discussion: HIGH RISK OF FRACTURE. BONE DENSITY IS UNDESIRABLY LOW AT ONE OR MORE SKELETAL SITES, CONSISTENT WITH POSTMENOPAUSAL OSTEOPOROSIS. This patient's lowest T-score, in a patient who has previously fractured, meets the World Health Organization's (WHO) criteria for severe osteoporosis. In untreated patients, the risk of osteoporotic fracture increases approximately two-fold for each 1.0 SD decrease in T-score. Low bone density is not the only risk factor for fracture; also consider factors such as patient's age, frailty or poor health, risk of falling, risk of injury, previous osteoporotic fracture, family history of osteoporosis, cigarette smoking, low body weight, etc. Not everyone with low bone mineral density has osteoporosis; osteomalacia and other metabolic bone disorders should also be considered. Patients who have osteoporosis should be evaluated for specific diseases and conditions (secondary causes) that may cause or contribute to bone loss. The [place] [employer] (AACE) and National Osteoporosis Foundation (NOF) recommend pharmacologic intervention for all postmenopausal women whose T-score is in this range. The patient should follow a healthful lifestyle (good nutrition with adequate calcium and vitamin D, and appropriate weight-bearing exercise). Follow-Up: Consider a repeat BMD and Vertebral Fracture Assessment (VFA) exam in 2 years or sooner if medically necessary, to reassess this patient's status. Reported by: ALLISON on 07/25/2025 1:56:00 PM. Reviewed, dictated and finalized at location A.
== END 2025-07-25 13:24 | disposition home or self-care (01) ==
LOC: CHSIMG 13:24
PROVIDERS: PCP Internal Medicine; Visit Provider Internal Medicine
DX: Z12.31 Encounter for screening mammogram for malignant neoplasm of breast (principal); Z78.0 Asymptomatic menopausal state; M81.0 Age-related osteoporosis without current pathological fracture; M85.89 Other specified disorders of bone density and structure, multiple sites
CPT/HCPCS: 77063; 77067; 77080